=== PATIENT | male | born 1955 | race Caucasian/White ===

== ENCOUNTER → 2016-05-27 | Outpatient (CLI) | payer OTHER ==
[~2016-05-27] MED LIST: CIPR-255 PO; MULT-506 PO
[2016-05-27 17:35] LABS: BASO % 0.5 %; BASO ABS # 0.03 K/uL (0-0.2); COMPLETE YES; EOS % 5.3 %; IG% 0.3 %; LYMPH % 42.4 %; MEAN CELL VOLUME 83.3 fL (80-100); MEAN CORPUSCULAR HEMOGLOBIN 28.8 pg (25-34); MEAN CORPUSCULAR HGB CONC 34.5 g/dl (32-36); MEAN PLATELET VOLUME 10.1 fL (7.4-10.4); MONO % 7.1 %; NEUT % 44.4 %; PLATELET COUNT 256 K/uL (130-400); WHITE BLOOD COUNT 6.37 K/uL (4.8-10.8)
[2016-05-27 17:58] LABS: ALT/SGPT 65 U/L (12-78); BLOOD UREA NITROGEN 17 mg/dl (7-18); CALCIUM 8.6 mg/dl (8.5-10.1); CARBON DIOXIDE 26 mmol/L (21-32); CHLORIDE 104 mmol/L (98-107); CHOLESTEROL 250 mg/dl (0-200); GLUCOSE 140 mg/dl (70-99); POTASSIUM 4.1 mmol/L (3.5-5.1); SODIUM 139 mmol/L (136-145)
[2016-05-27 18:09] LABS: ALKALINE PHOSPHATASE 72 U/L (45-117); AST/SGOT 39 U/L (15-37); CHOLESTEROL/HDL RATIO 3.2; HDL CHOLESTEROL 79 mg/dl; LDL CHOLESTEROL CALCULATED 153 mg/dl; TRIGLYCERIDES 90 mg/dl (0-150); VERY LOW DENSITY LIPOPROT CALC 18 mg/dl
[2016-05-27 18:50] LABS: LYME DISEASE AB IGM NEG (NEG)
[2016-05-27 18:51] LABS: LYME DISEASE AB IGG POS (NEG)
[2016-05-28 06:08] LABS: ESTIMATED AVERAGE GLUCOSE 214 mg/dl; HA1C FLAG Normal (Normal)
[2016-06-03 11:10] LABS: 18KDIGG BAND REACTIVE (NONREACTIVE); 23KDIGG BAND NONREACTIVE (NONREACTIVE); 23KDIGM BAND NONREACTIVE (NONREACTIVE); 28KDIGG BAND NONREACTIVE (NONREACTIVE); 30KDIGG BAND NONREACTIVE (NONREACTIVE); 39KDIGG BAND REACTIVE (NONREACTIVE); 39KDIGM BAND NONREACTIVE (NONREACTIVE); 41KDIGG BAND REACTIVE (NONREACTIVE); 41KDIGM BAND NONREACTIVE (NONREACTIVE); 45KDIGG BAND NONREACTIVE (NONREACTIVE); 58KDIGG BAND REACTIVE (NONREACTIVE); 66KDIGG BAND REACTIVE (NONREACTIVE); 93KDIGG BAND REACTIVE (NONREACTIVE)
== END | disposition home or self-care (01) ==
LOC: C.LABPVFM 13:34
PROVIDERS: ATTEND Nurse Practitioner Family
DX: E11.9 Type 2 diabetes mellitus without complications (principal); E78.5 Hyperlipidemia, unspecified; I10 Essential (primary) hypertension; T14.8 Other injury of unspecified body region; W57.XXXA Bitten or stung by nonvenomous insect and other nonvenomous arthropods, initial encounter

== ENCOUNTER → 2016-12-25 | Outpatient (CLI) | payer BC | END | disposition home or self-care (01) | LOC: C.LABPVFM 15:00 | PROVIDERS: ATTEND Nurse Practitioner Family | DX: N39.0 Urinary tract infection, site not specified (principal) ==

== ENCOUNTER → 2017-03-13 | Outpatient (CLI) | payer BC ==
[2017-03-13 13:12] LABS: ESTIMATED AVERAGE GLUCOSE 117 mg/dl; HA1C FLAG Normal (Normal)
[2017-03-13 13:16] LABS: BLOOD UREA NITROGEN 21 mg/dl (7-18); BUN/CREATININE RATIO 25.4 (10-20); CARBON DIOXIDE 25 mmol/L (21-32); CHLORIDE 106 mmol/L (98-107); CREATININE 0.84 mg/dl (0.60-1.40); GLUCOSE 111 mg/dl (70-99); POTASSIUM 4.1 mmol/L (3.5-5.1); SODIUM 137 mmol/L (136-145)
== END | disposition home or self-care (01) ==
LOC: C.LABPVFM 10:03
PROVIDERS: ATTEND Nurse Practitioner Family
DX: E55.9 Vitamin D deficiency, unspecified (principal); E78.5 Hyperlipidemia, unspecified; I10 Essential (primary) hypertension; E11.9 Type 2 diabetes mellitus without complications

== ENCOUNTER 2025-02-23 13:23 | Inpatient (IN) ==
--- NOTE | 2025-02-23 13:44 | Emergency Department Note ---
ED Provider Note History of Present Illness Chief Complaint: Skin Problem Stated Complaint: PROSTITUS CYST ABSESS Time Seen by Provider: 02/23/25 13:43 Source: patient Mode of arrival: ambulatory Limitations: no limitations Patient is a 69-year-old male who presents to the emergency department with complaints of an abscess in his perineum. Patient states that he was seen here approximately 2 weeks ago and had a catheter placed by urology at the bedside and notes that since that visit in the ER he has had some worsening swelling and pain just below his scrotum. Patient notes that it is painful for him to sit, walk or do any bending over because it is enlarged and painful. Patient has a De Souza catheter in placed upon presentation to the emergency department. It is draining with no difficulty. Home Medications Medication Instructions Recorded Confirmed Type lancets 30 gauge (OneTouch Delica #100 ea 05/18/23 02/19/25 Rx Plus Lancet) blood-glucose sensor (Dexcom G7 #3 ea 05/27/23 02/19/25 Rx Sensor device) blood-glucose,channel lip stiffener insoles,cont #1 ea 05/27/23 02/19/25 Rx (Dexcom G7 [place] Encaser) lisinopril 10 1 tab PO QAM #90 tabs 09/28/24 02/23/25 Rx mg-hydrochlorothiazide 12.5 mg tablet blood sugar diagnostic (OneTouch #100 ea 12/13/24 02/19/25 Rx Ultra Test strips) blood-glucose meter (OneTouch #1 ea 12/13/24 02/19/25 Rx Ultra2 Meter) metformin 500 mg tablet 1,000 mg (2 x 500 mg) PO BID #360 12/21/24 02/23/25 Rx tabs nystatin 100,000 unit/gram topical 1 applic topical BID PRN "BXO" 12/21/24 02/23/25 Rx cream #30 grams pen needle, diabetic 31 gauge x #100 ea 12/21/24 02/19/25 Rx 5/16" clobetasol 0.05 % topical cream 1 applic topical BID PRN Other 02/11/25 02/23/25 History ciprofloxacin HCl 500 mg tablet 500 mg PO BID #60 tabs 02/19/25 02/23/25 Rx gabapentin 100 mg tablet 300 mg (3 x 100 mg) PO DAILY #90 02/19/25 02/23/25 Rx tabs oxycodone 5 mg tablet 2.5 mg (1/2 x 5 mg) PO BID PRN 02/19/25 02/23/25 Rx pain #30 tabs insulin glargine 100 unit/mL (3 0 unit subcut QPM 02/23/25 02/23/25 History mL) subcutaneous pen (Lantus Solostar U-100 Insulin) nystatin 100,000 unit/gram topical 0 applic topical BID 02/23/25 02/23/25 History powder Allergies Allergy/AdvReac Type Severity Reaction Status Date / Time atropine Allergy Severe SEE NOTES Verified 02/19/25 11:31 BELOW Past Med/Surg History Problem List (Updated 02/25/25 @ 18:36 by CECILLE Rios) Candidal UTI (urinary tract infection) [place] rash of groin Penile lesion Perineal abscess (Acute) Prostatitis, acute Scrotal pain Tinea cruris (Acute) Acute hyperglycemia (Acute) Acute on chronic urinary retention (Acute) Urinary retention Tinea corporis UTI (urinary tract infection), uncomplicated Statin intolerance Uncontrolled diabetes mellitus with hyperglycemia Elevated liver enzymes BPH loc w urin obs/LUTS Hyperlipidemia not able saul statin BXO (balanitis xerotica obliterans) Meatal stenosis Urethral stricture (Acute) Vitamin D deficiency (Acute) Obesity, Class III, BMI 40-49.9 (morbid obesity) (Acute) Acrochordon (Acute) Varicose vein of leg Depression ADD (attention deficit disorder) Medical History Actinic keratosis Seborrheic keratosis ADD (attention deficit disorder) History of urethral stricture Diabetes mellitus, type 2 Rib fracture healing left anterior seventh rib fracture 06/02/2021 CXR Morbid obesity Cardiac murmur HX OF - YOUNG AGE, no murmur noted at 2019 anesthesia consultation Hypertension Surgical History S/P arthroscopy of shoulder History of repair of rotator cuff left History of colonoscopy History of urologic surgery DVIU -most recent may 2021 History of ankle surgery R&L Family History Mother Family history of diabetes mellitus Ovarian cancer Grandfather (Paternal) Cancer Grandfather (Maternal) Myocardial infarction Denies family history of Prostate cancer Breast cancer Colorectal cancer Social History Smoking Status: Never smoker Second Hand Exposure: No; Do You Dip or Chew Tobacco: No; Hx Alcohol Use: No Hx Substance Use: No Preferred Language: Tamazight Communication Ability: Effective Visual Impairment: No Limitations Hearing Ability: Normal Machine Operations Supervisor Required: No Beliefs That Will Affect Care: None marital status: Legally Current Living Situation: Alone Current Living Situation Comment: lives in a cabin on his property current occupational status: retired 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, 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 [employer] How many Children do You have: 0 Other Information That Helps Us Care for You: No Feels Safe at Home: Yes Safety Concerns: Feels Safe At This Time Childhood Exposure to Second-Hand Smoke: Yes Diet: regular caffeine: Yes during the past year weight has: remained stable Dental Care, Regularly: Yes Physical Activity Frequency: 3-4 Times per Week Seatbelt Use: sometimes Sunscreen Use: Yes (sometimes) Do you think of yourself as: straight/heterosexual Sexual Activity: has been sexually active, but not for at least 12 months Gender Identity: Male Assistive Devices: None Physical Exam Vital Signs Vital Signs - 24 hr 02/23/25 13:37 Temperature 36.9 C Temperature Source Temporal Artery Scan Pulse Rate 88 Respiratory Rate 18 Respiratory Effort / Characteristics Non-Labored Respiratory Depth Normal Blood Pressure 146/77 H Blood Pressure Mean 100 Pulse Oximetry 99 Oxygen Delivery Method Room Air Sepsis Recent Fever Within 48 Hours No Sepsis New/Unexplained Change in Mental Status No Sepsis Action Taken by Nursing No Action Required VITAL SIGNS - Vital signs and nursing notes were reviewed. GENERAL -69-year-old male appearing their stated age, who is in no acute distress. Communicates well with provider and answers questions appropriately. HEAD - Normocephalic, Atraumatic. No Le's Sign or Raccoon's Eyes. No depressed skull fractures palpable. EYES - PERRL with EOMI bilaterally. Sclera anicteric. Conjunctiva pink and moist with no injection noted. LUNGS - Chest wall symmetric without accessory muscle use, intercostals retractions, or central cyanosis. Normal vesicular breath sounds CTA B/L. No wheezes, rales, or rhonchi appreciated. CARDIAC - RRR with S1/S2. No murmur, rubs, or gallops appreciated. ABDOMEN- Soft and nontender, bowel sounds present in all 4 quadrants. No palpable masses or ascites. -patient has an indwelling De Souza catheter in place. The catheter appears to be draining with no difficulty. Patient does have a large swollen and cystic appearing mass to his scrotum on the left side. Patient notes significant discomfort, worsening with palpation. Patient denies any testicular pain. The area of swelling on his scrotum does have a pustule on the top of his presenting like a an abscess. EXTREMITIES - No edema present. +5/5 strength noted in UE/LE bilaterally. Course Administered Medications Acetaminophen (Acetaminophen 325 Mg Tab) 650 mg PO Q4H PRN PRN Reason: pain/fever Stop: 03/25/25 20:58 Last Admin: 02/24/25 21:44 Dose: 650 mg Documented By: justin Admin: 02/24/25 09:36 Dose: 650 mg Documented By: BHAVANA Enoxaparin Sodium (Enoxaparin Inj 40 Mg/0.4 Ml Syr) 40 mg SQ QAM [facility] Stop: 03/27/25 08:59 Last Admin: 02/25/25 09:04 Dose: 40 mg Documented By: BHAVANA Gabapentin (Gabapentin 300 Mg Cap) 300 mg PO HS [facility] Stop: 03/25/25 20:59 Last Admin: 02/24/25 21:44 Dose: 300 mg Documented By: justin Admin: 02/23/25 22:07 Dose: 300 mg Documented By: KURTIS Fluconazole (Diflucan) 200 mg in 100 mls @ 100 mls/hr IV Q24H [facility] Stop: 03/03/25 17:29 Last Infusion: 02/25/25 19:18 Dose: Infused Documented By: justin Admin: 02/25/25 18:02 Dose: 100 mls/hr Documented By: Infusion: 02/24/25 18:30 Dose: Infused Documented By: Admin: 02/24/25 17:25 Dose: 100 mls/hr Documented By: BHAVANA Daptomycin 500 mg/ Syringe 10 mls @ 5 mls/min IV Q24H [facility]; Protocol Stop: 03/03/25 17:29 Last Admin: 02/25/25 18:09 Dose: 5 mls/min Documented By: Admin: 02/24/25 17:25 Dose: 5 mls/min Documented By: BHAVANA Piperacillin Sod/Tazobactam Sod (Zosyn) 4.5 gm in 100 mls @ 25 mls/hr IV Q8H [facility]; Protocol Stop: 03/02/25 21:59 Last Infusion: 02/25/25 18:37 Dose: Infused Documented By: Admin: 02/25/25 14:30 Dose: 25 mls/hr Documented By: Infusion: 02/25/25 09:36 Dose: Infused Documented By: Infusion: 02/25/25 06:05 Dose: 25 mls/hr Documented By: justin Infusion: 02/25/25 05:54 Dose: 0 mls/hr Documented By: justin Admin: 02/25/25 05:44 Dose: 25 mls/hr Documented By: justin Infusion: 02/25/25 03:21 Dose: Infused Documented By: justin Admin: 02/24/25 22:35 Dose: 25 mls/hr Documented By: justin Infusion: 02/24/25 19:31 Dose: Infused Documented By: justin Admin: 02/24/25 14:21 Dose: 25 mls/hr Documented By: Infusion: 02/24/25 13:37 Dose: Infused Documented By: Admin: 02/24/25 06:07 Dose: 25 mls/hr Documented By: Infusion: 02/24/25 02:10 Dose: Infused Documented By: Admin: 02/23/25 22:06 Dose: 25 mls/hr Documented By: KURTIS Insulin Aspart (Insulin Aspart Per Unit Charge) 0 units SC ACHS [facility] Stop: 03/26/25 13:44 Last Admin: 02/25/25 18:09 Dose: 8 units Documented By: BHAVANA Co-signed By: dannie Admin: 02/25/25 12:45 Dose: 4 units Documented By: BHAVANA Co-signed By: DANI Admin: 02/25/25 09:51 Dose: 6 units Documented By: BHAVANA Co-signed By: dannie Admin: 02/24/25 21:45 Dose: 4 units Documented By: justin Co-signed By: DWIGHT Admin: 02/24/25 17:24 Dose: 10 units Documented By: BHAVANA Co-signed By: SARBJIT Admin: 02/24/25 14:27 Dose: 2 units Documented By: BHAVANA Co-signed By: dannie Insulin Glargine (Lantus Per Unit Charge) 15 units SQ QPM [facility] Stop: 03/25/25 20:59 Last Admin: 02/24/25 21:44 Dose: 15 units Documented By: justin Co-signed By: DWIGHT Admin: 02/23/25 22:03 Dose: 15 units Documented By: KURTIS Co-signed By: DWIGHT Morphine Sulfate (Morphine Sulfate 2 Mg/Ml Carp) 2 mg IV Q3H PRN PRN Reason: Pain Stop: 03/09/25 20:58 Last Admin: 02/25/25 09:07 Dose: 2 mg Documented By: Admin: 02/25/25 05:47 Dose: 2 mg Documented By: justin Admin: 02/25/25 01:00 Dose: 2 mg Documented By: Admin: 02/24/25 19:55 Dose: 2 mg Documented By: justin Admin: 02/24/25 14:30 Dose: 2 mg Documented By: Admin: 02/24/25 08:46 Dose: 2 mg Documented By: Admin: 02/24/25 02:03 Dose: 2 mg Documented By: KURTIS Oxycodone HCl (Oxycodone Hcl Ir 5 Mg Tab (Immediate Release)) 5 mg PO Q4H PRN PRN Reason: Moderate Pain (Scale 4, 5, 6) Stop: 03/11/25 09:38 Last Admin: 02/25/25 15:39 Dose: 5 mg Documented By: BHAVANA Discontinued Medications Bacitracin (Bacitracin Oint 14 Gm Tube) Confirm Administered Dose 45 appln .ROUTE .STK-MED ONE Stop: 02/24/25 07:40 Last Admin: 02/24/25 11:35 Dose: Not Given Documented By: [facility] Bupivacaine HCl (Bupivacaine 0.5 % 5 Mg/1 Ml Mpf 30ml Vial) Confirm Administered Dose 30 ml .ROUTE .STK-MED ONE Stop: 02/24/25 07:40 Last Admin: 02/24/25 11:35 Dose: 10 ml Documented By: [id number] Piperacillin Sod/Tazobactam Sod (Zosyn) 4.5 gm in 100 mls @ 200 mls/hr IV NOW ONE; Protocol Stop: 02/23/25 17:32 Last Infusion: 02/23/25 17:45 Dose: Infused Documented By: Admin: 02/23/25 17:21 Dose: 200 mls/hr Documented By: PANDA Daptomycin 600 mg/ Syringe 12 mls @ 8.25 mls/min IV NOW ONE; Protocol Stop: 02/23/25 17:44 Last Admin: 02/23/25 18:33 Dose: 8.25 mls/min Documented By: jojo Fluconazole (Diflucan) 200 mg in 100 mls @ 100 mls/hr IV ONE ONE Stop: 02/23/25 18:32 Last Infusion: 02/23/25 19:38 Dose: Infused Documented By: Admin: 02/23/25 18:33 Dose: 100 mls/hr Documented By: jojo Magnesium Sulfate/Dextrose (Magnesium Sulfate / D5w) 1 gm in 100 mls @ 100 mls/hr IV Q1H [facility] Stop: 02/23/25 21:25 Last Infusion: 02/24/25 00:30 Dose: Infused Documented By: Admin: 02/23/25 23:19 Dose: 100 mls/hr Documented By: Infusion: 02/23/25 23:06 Dose: Infused Documented By: Admin: 02/23/25 22:06 Dose: 100 mls/hr Documented By: KURTIS Sodium Chloride (Nss) 1,000 mls @ 100 mls/hr IV .Q10H [facility] Stop: 02/24/25 06:58 Last Infusion: 02/24/25 08:25 Dose: Infused Documented By: Admin: 02/23/25 22:05 Dose: 100 mls/hr Documented By: KURTIS Insulin Aspart (Insulin Aspart Per Unit Charge) 0 units SC Q6 [facility] Stop: 03/25/25 20:59 Last Admin: 02/24/25 18:51 Dose: Not Given Documented By: justin Admin: 02/24/25 05:46 Dose: Not Given Documented By: Admin: 02/24/25 01:20 Dose: Not Given Documented By: Admin: 02/23/25 22:03 Dose: 2 units Documented By: KURTIS Co-signed By: DWIGHT Ioversol (Optiray 320 100ml) 93 ml IV ONCE ONE Stop: 02/23/25 16:08 Last Admin: 02/23/25 16:07 Dose: 93 ml Documented By: KATIE Lidocaine HCl (Lidocaine 1% Local 20 Ml Vial) 5 ml INFIL NOW ONE Stop: 02/23/25 13:54 Last Admin: 02/23/25 17:21 Dose: Not Given Documented By: PANDA Morphine Sulfate (Morphine Sulfate 4 Mg/Ml 1 Ml Carp\\Vial) 4 mg IV NOW STA Stop: 02/23/25 17:27 Last Admin: 02/23/25 17:44 Dose: 4 mg Documented By: PANDA Morphine Sulfate (Morphine Sulfate 2 Mg/Ml Carp) Confirm Administered Dose 2 mg .ROUTE .STK-MED ONE Stop: 02/23/25 21:13 Last Admin: 02/23/25 21:14 Dose: 2 mg Documented By: DWIGHT Ondansetron HCl (Ondansetron Inj 2 Mg/Ml 2 Ml Vial) 4 mg IV NOW STA Stop: 02/23/25 17:27 Last Admin: 02/23/25 17:44 Dose: 4 mg Documented By: PANDA Medical Decision Making Differential Diagnosis Abscess, cyst, cellulitis, among others Medical Records Attestation: I reviewed the patient's medical records. Home Medications was personally reviewed by me Laboratory Data Attestation: I reviewed the patient's lab results. 02/24/25 06:47 02/25/25 06:03 Lab Results 02/23/25 Range/Units 14:20 WBC 12.55 H (4.8-10.8) K/ul RBC 4.04 L (4.70-6.10) M/uL Hgb 11.8 L (14.0-18.0) g/dL Hct 33.8 L (42.0-52.0) % MCV 83.7 (80.0-100.0) fL MCH 29.2 (25.0-34.0) pg MCHC 34.9 (32.0-36.0) g/dL RDW Std Deviation 37.9 (36.4-46.3) fL RDW Coeff of Jodi 12.4 (11.5-14.5) % Plt Count 373 (130-400) K/uL MPV 9.3 L (9.4-12.4) fL Immature Gran % (Auto) 0.5 % Neut % (Auto) 70.5 % Lymph % (Auto) 18.8 % Chase % (Auto) 5.9 % Eos % (Auto) 3.8 % Baso % (Auto) 0.5 % Neut # (Auto) 8.85 H (1.40-6.50) K/uL Lymph # (Auto) 2.36 (1.20-3.40) K/uL Chase # (Auto) 0.74 H (0.11-0.59) K/uL Eos # (Auto) 0.48 (0.00-0.50) K/uL Baso # (Auto) 0.06 (0.00-0.20) K/uL Immature Gran # (Auto) 0.06 (0.01-0.20) K/uL Sodium 135 L (136-145) mmol/L Potassium 4.3 (3.5-5.1) mmol/L Chloride 101 (98-107) mmol/L Carbon Dioxide 25 (21-32) mmol/L Anion Gap 9 (3-11) BUN 24 H (6-23) mg/dl Creatinine 0.86 (0.6-1.4) mg/dl Est Cr Clr Drug Dosing Not Reportable eGFR 93.73 BUN/Creatinine Ratio 27.9 H (10-20) Glucose 155 H (70-99(Fasting)) mg/dl Estimat Average Glucose 214 mg/dl Hemoglobin A1c 9.1 H (4.5-5.6) % Lactate 1.8 (0.4-2.0) mmol/L Calcium 9.3 (8.6-10.3) mg/dl Magnesium 1.6 L (1.7-2.4) mg/dl Total Bilirubin 0.4 (0.2-1.0) mg/dl AST 20 (13-39) U/L ALT 19 (7-52) U/L Alkaline Phosphatase 119 H (34-104) U/L Total Protein 7.8 (6.0-8.3) gm/dl Albumin 3.7 (3.4-5.0) gm/dl Globulin 4.1 H (2.5-4.0) gm/dl Albumin/Globulin Ratio 0.9 (0.9-2) MDM Narrative Patient is a 69-year-old male who presents to the emergency department with complaints of an abscess in his perineum. Patient states that he was seen here approximately 2 weeks ago and had a catheter placed by urology at the bedside and notes that since that visit in the ER he has had some worsening swelling and pain just below his scrotum. Patient notes that it is painful for him to sit, walk or do any bending over because it is enlarged and painful. Patient has a De Souza catheter in placed upon presentation to the emergency department. It is draining with no difficulty. Patient was evaluated by myself and findings were noted in the physical exam above. Patient was ordered IV placement, lab work and initially ordered a deep tissue culture and lidocaine for incision and drainage. After the patient was evaluated by myself I felt that doing imaging on the patient's abscess was appropriate prior to incision and drainage due to the location and the appearance of the abscess. The patient was ordered an ultrasound of that soft tissue. Patient's lab work resulted with an elevated white blood cell count of 12.55. Patient was mildly anemic with a hemoglobin of 11.8 and hematocrit of 33.8. Patient had no significant electrolyte imbalance noted. Patient's ultrasound of the soft tissue around his scrotum showed an indeterminate mass measuring up to [address] imaging with contrast to further evaluate the area. Patient was ordered a CT of the pelvis with IV contrast at this time. Patient was also ordered a dose of Zosyn and morphine and Zofran as needed for discomfort. Patient had his CT that was completed and interpreted by radiology to show a 6.1 cm soft tissue abscess at the junction of the scrotal sac and the perineum. There is also an adjacent 9.9 x 4.2 cm fluid collection in the posterior scrotal sac that may also be an abscess as well. There is some diffuse wall thickening of the bladder which may be due to infectious cystitis as well. I reached out and spoke with Dr. Simpson who was on-call for urology today. He gave him a full report of the patient's chief complaint, current status and the results of his imaging and lab work. He agreed that it would be reasonable to have the patient be admitted to the hospital and take him to the OR tomorrow for drainage of this abscess due to the complexity of it. I spoke with the patient and the patient was agreeable to this plan. The patient reports that he ate just prior to coming to the emergency department and they would be able to take him to the OR to much later tonight and due to the patient's unstable presentation he was agreeable to the plan to wait and be admitted to the hospital for IV antibiotics and pain control. I reached out and spoke with the [facility] hospitalist group regarding this patient. I keep a full report on the patient's chief complaint, current status and the results of his imaging and lab work. I also discussed with them that I spoke with Dr. Simpson regarding this patient. They were agreeable to admit the patient to the hospital under their service. Please refer to the [facility] hospitalist group's and urology's documentation of this patient for further evaluation and management. Attending Attestation: I Basilio Dave MD I have reviewed the advanced practitioner's documentation and agree with the plan of care. Significant collection on imaging. Discussion was had with urology and will start on broad-spectrum antibiotics until plan for OR with urology. Admitted to medicine. I accept the responsibility for the associated risk of managing the patient. I performed a substantive portion of the visit including involvement in all aspects of medical decision making. Impression Perineal abscess Discharge Plan Visit Data Chief Complaint: Skin Problem Stated Complaint: PROSTITUS CYST ABSESS ED Provider: Basilio Dave ED Midlevel Provider: Nikki Engel Discharge Problem: Perineal abscess Patient Disposition: Admitted As Inpatient Condition: Fair Discharge Instructions Interventions: ED Discharge Assessment Last Done: 02/23/25 19:41 ED DC CONDITION Conditon at Discharge Condition at Discharge: Fair
[2025-02-23 14:52] LABS: Hematocrit (blood only) 33.8 % (42.0-52.0); Hemoglobin 11.8 g/dL (14.0-18.0); Immature Granulocytes # (auto) 0.06 K/uL (0.01-0.20); Immature Granulocytes % (auto) 0.5 %; Mean Corpuscular Hemoglobin 29.2 pg (25.0-34.0); Mean Corpuscular Volume 83.7 fL (80.0-100.0); Platelet Count 373 K/uL (130-400); RDW Standard Deviation 37.9 fL (36.4-46.3); Red Blood Count 4.04 M/uL (4.70-6.10); White Blood Count 12.55 K/ul (4.8-10.8)
[2025-02-23 15:07] LABS: Alanine Aminotransferase 19 U/L (7-52); Albumin Globulin Ratio 0.9 (0.9-2); Albumin Level 3.7 gm/dl (3.4-5.0); Alkaline Phosphatase 119 U/L (34-104); Anion Gap 9 (3-11); Bilirubin,Total 0.4 mg/dl (0.2-1.0); Blood Urea Nitrogen 24 mg/dl (6-23); Calcium 9.3 mg/dl (8.6-10.3); Carbon Dioxide 25 mmol/L (21-32); Chloride 101 mmol/L (98-107); Globulin 4.1 gm/dl (2.5-4.0); Glucose 155 mg/dl (70-99(Fasting)); Potassium 4.3 mmol/L (3.5-5.1); Sodium 135 mmol/L (136-145); Total Protein 7.8 gm/dl (6.0-8.3)
--- NOTE | 2025-02-23 15:34 | Ultrasound Report ---
US soft tissue perineum HISTORY: 69 years-old Male large abscess/cyst . Patient presents with palpable abnormality of the pe rineum. COMPARISON: Scrotal ultrasound 07/16/2014 TECHNIQUE: Multiple real-time sonographic images of the perineal tissues were obtained assessing torres scale appearance and color flow FINDINGS: Indeterminate mixed echogenicity structure within the perineum demonstrates central color flow measur ing 6 x 2 x 4 cm. Additionally, there is scrotal wall subcutaneous edema. IMPRESSION: Indeterminate fracture/possible mass in the perineum measures up to 6 cm. Correlation wit h dedicated CT of the pelvis with IV contrast recommended. ACT 112: Negative or not required by law. The above report was generated using voice recognition software. It may contain grammatical, syntax o r spelling errors. Electronically signed by: Albert Lizarraga M.D. 02/23/2025 3:33 PM
[2025-02-23] MEDS: OPTIRAY 320 100ml IV ONE (16:07)
--- NOTE | 2025-02-23 17:00 | CT Scan Report ---
Clinical history: Possible mass Technique: Axial computed tomography images were obtained of the pelvis after the administration of intravenous contrast Findings: There is a 6.1 x 4.2 cm ring-enhancing fluid collection at the junction of the perineum and scrotum, consistent with an abscess. This is contiguous with a 9.9 x 4.2 cm fluid collection in the posterior scrotal sac No fracture is identified. There is a sclerotic lesion in the right ilium adjacent to the right sacroiliac joint. There is mild bilateral hip osteoarthritis. The sacroiliac joints appear unremarkable. There is no sign of osteomyelitis The visualized musculature appears unremarkable. There is a small umbilical hernia containing fat The iliac arteries are of normal caliber. No adenopathy is noted. The visualized bowel appears unremarkable. No free intraperitoneal fluid or air is seen. There is apparent diffuse bladder wall thickening. The bladder is decompressed, containing a De Souza catheter Impression: 1. 6.1 cm soft tissue abscess at the junction of the scrotal sac and perineum, with an adjacent 9.9 x 4.2 cm fluid collection in the posterior scrotal sac that may represent an abscess as well 2. Apparent diffuse bladder wall thickening. Possible etiologies include infectious cystitis and neurogenic bladder 3. Small umbilical hernia containing only fat 4. Sclerotic lesion in the right ilium, indeterminate in nature but likely a benign bone island ACT 112: Positive. There are findings on this exam that require communication between the performing entity and the patient following Patient Test Result Information Act ([place] ACT 112) guidelines. Electronically signed by Andres Mitchell 02-23-2025 4:59 PM
[2025-02-23] MEDS: LIDOCAINE 1% LOCAL 20 ML VIAL INFIL ONE (17:21)
[2025-02-23] MEDS: PIPERACILLIN/TAZOBACTAM 4.5 GM/100 ML BAG IV ONE (17:21)
--- NOTE | 2025-02-23 17:30 | History & Physical Report ---
Date of Service February 23, 2025 Assessment & Plan (1) Perineal abscess: (2) Uncontrolled diabetes mellitus with hyperglycemia: (3) Hyperlipidemia: (4) Penile lesion: (5) Bhavna rash of groin: (6) Morbid obesity: (7) Hypertension: (8) BPH loc w urin obs/LUTS: (9) History of urethral stricture: (10) Candidal UTI (urinary tract infection): Plan 69yo male with T2DM, HTN, diabetic neuropathy, obesity, ADD, balanitis xerotica obliterans, BPH, hypospadias, lichen sclerosis of the foreskin, recent urethral dilatation for urethral stricture (02/11/25), and recent delacruz catheter placement by urology (Dr Vines - 02/11/25). Presents with 2 weeks of worsening perineal pain and swelling. #perineal abscess - -as seen on CT pelvis today and on physical exam -due to recent bhavna seen on urine cx as well as candidal-appearing rash in groin will continue candidal coverage with diflucan 200mg IV daily -for typical bacterial pathogens and given the severity of this infection will continue zosyn/daptomycin - both of which were started in ER -urology consulted, they plan OR I/D tomorrow -morphine prn pain -NPO after MN tonight -IV fluids -blood cultures have been collected & are pending #candidal UTI - -c albicans grew on 02/11/25 urine culture -he received a single dose of diflucan on 02/11/25 but none since -will cont diflucan 200mg IV daily -if he has typical bacterial UTI and/or prostatitis he will be on zosyn/dapto (being used for perineal abscess) #urethral stricture s/p dilatation and LUTS - s/p delacruz placement 02/11 - -continue delacruz -defer management to urology #uncontrolled T2DM - -since he will be NPO starting at MN will give a lower dose of lantus tonight - 15 units; but plan to titrate this post-op -novolog SSI for meals/correction -Hba1c 9.1% today -BSGs ac/hs -hold metformin #hypomagnesemia - -IV mag sulfate x 2 grams -repeat mag level am -2nd to chronic HCTZ use #HTN - -hold lisinopril-HCTZ; resume as needed #diabetic neuropathy of hands/feet - -cont gabapentin #BPH - -consider flomax or similar #hyperlipidemia - -he is not on therapy for such #penile lesion on hooks of penis - -consider bx when under anesthesia for the abscess? defer to urology #candidal groin rash - -diflucan should be more than adequate #housing insecurity - -will need social work assistance with this given he does not have a shower/bath-tub #DVT Proph - -following surgery will start some form of chemical DVT proph if permissible with urology History of Present Illness Chief Complaint: worsening pain perineal region Primary Care Provider: CECILLE Monroe 69yo male with T2DM, HTN, diabetic neuropathy, obesity, ADD, balanitis xerotica obliterans, BPH, hypospadias, lichen sclerosis of the foreskin, recent urethral dilatation for urethral stricture, and recent delacruz catheter placement. Presents with 2 weeks of worsening perineal pain and swelling. On 02/06 he saw his PCP for a routine wellness visit and at that time was c/o dysuria as well as rash in his groin. On 02/11 he came to the [facility] ER with 2 days of difficulty voiding as well as worsening rash in the groin. Attempts to place a delacruz were unsuccessful and urology was consulted for assistance with such. [place] Spencer [place] [facility] [place] [place] Rinaldi and performed urethral dilatation and delacruz placement. He was given a dose of diflucan for the rash in his groin, urine culture was sent, and he was placed on a 10-day course of bactrim. Urine culture ultimately grew bhavna albicans. During that ER visit he was having some mild perineal pain but by report there was nothing on physical exam to account for that pain. On 02/19 he had a f/u visit with his PCP's office and his bactrim was changed to cipro for concerns of prostatitis. His perineal pain had been worsening to the point of needing narcotic pain medicine to stay comfortable. Plans were for urgent urology referral. Within a couple of days of this last primary care visit the perineal region started to become very swollen and even more tender. It got to the point where he could not sit in a chair due to the severity of the pain. No drainage. Denies any fevers or chills. Delacruz has remained in place since the 02/11 ER visit. He finally came to the ER today due to the severity of the pain. Patient reports he is going through a divorce and has been staying in a cabin on the property where his main home is. This cabin has heat & electricity but he does not have a shower/bath-tub. He has been making plans to shower at a neighbor's home. Allergies Allergy/AdvReac Type Severity Reaction Status Date / Time atropine Allergy Severe SEE NOTES Verified 02/19/25 11:31 BELOW Home Medications Medication Instructions Recorded Confirmed Type lancets 30 gauge (OneTouch Delica #100 ea 05/18/23 02/19/25 Rx Plus Lancet) blood-glucose sensor (Dexcom G7 #3 ea 05/27/23 02/19/25 Rx Sensor device) blood-glucose,credit risk officer,cont #1 ea 05/27/23 02/19/25 Rx (Dexcom G7 Ophthalmic Photographer) lisinopril 10 1 tab PO QAM #90 tabs 09/28/24 02/23/25 Rx mg-hydrochlorothiazide 12.5 mg tablet blood sugar diagnostic (OneTouch #100 ea 12/13/24 02/19/25 Rx Ultra Test strips) blood-glucose meter (OneTouch #1 ea 12/13/24 02/19/25 Rx Ultra2 Meter) metformin 500 mg tablet 1,000 mg (2 x 500 mg) PO BID #360 12/21/24 02/23/25 Rx tabs nystatin 100,000 unit/gram topical 1 applic topical BID PRN "BXO" 12/21/24 02/23/25 Rx cream #30 grams pen needle, diabetic 31 gauge x #100 ea 12/21/24 02/19/25 Rx 5/16" clobetasol 0.05 % topical cream 1 applic topical BID PRN Other 02/11/25 02/23/25 History ciprofloxacin HCl 500 mg tablet 500 mg PO BID #60 tabs 02/19/25 02/23/25 Rx gabapentin 100 mg tablet 300 mg (3 x 100 mg) PO DAILY #90 02/19/25 02/23/25 Rx tabs oxycodone 5 mg tablet 2.5 mg (1/2 x 5 mg) PO BID PRN 02/19/25 02/23/25 Rx pain #30 tabs insulin glargine 100 unit/mL (3 0 unit subcut QPM 02/23/25 02/23/25 History mL) subcutaneous pen (Lantus Solostar U-100 Insulin) nystatin 100,000 unit/gram topical 0 applic topical BID 02/23/25 02/23/25 History powder Past Med/Surg History Problem List (Updated 02/24/25 @ 05:53 by Aldair Watt MD) Candidal UTI (urinary tract infection) Bhavna rash of groin Penile lesion Perineal abscess Prostatitis, acute Scrotal pain Tinea cruris (Acute) Acute hyperglycemia (Acute) Acute on chronic urinary retention (Acute) Urinary retention Tinea corporis UTI (urinary tract infection), uncomplicated Statin intolerance Uncontrolled diabetes mellitus with hyperglycemia Elevated liver enzymes BPH loc w urin obs/LUTS Hyperlipidemia not able saul statin BXO (balanitis xerotica obliterans) Meatal stenosis Urethral stricture (Acute) Vitamin D deficiency (Acute) Obesity, Class III, BMI 40-49.9 (morbid obesity) (Acute) Acrochordon (Acute) Varicose vein of leg Depression ADD (attention deficit disorder) Medical History Actinic keratosis Seborrheic keratosis ADD (attention deficit disorder) History of urethral stricture Diabetes mellitus, type 2 Rib fracture healing left anterior seventh rib fracture 06/02/2021 CXR Morbid obesity Cardiac murmur HX OF - YOUNG AGE, no murmur noted at 2019 anesthesia consultation Hypertension Surgical History S/P arthroscopy of shoulder History of repair of rotator cuff left History of colonoscopy History of urologic surgery DVIU -most recent may 2021 History of ankle surgery R&L Family History Mother Family history of diabetes mellitus Ovarian cancer Grandfather (Paternal) Cancer Grandfather (Maternal) Myocardial infarction Denies family history of Prostate cancer Breast cancer Colorectal cancer Social History (Updated 02/24/25 @ 05:43 by Aldair Watt MD) Smoking Status: Never smoker Second Hand Exposure: No; Do You Dip or Chew Tobacco: No; Hx Alcohol Use: No Hx Substance Use: No Preferred Language: Malian Communication Ability: Effective Visual Impairment: No Limitations Hearing Ability: Normal Cut Off Tender Glass Required: No Beliefs That Will Affect Care: None marital status: Legally Current Living Situation: Alone Current Living Situation Comment: lives in a cabin on his property current occupational status: retired 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, 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 [employer] How many Children do You have: 0 Feels Safe at Home: Yes Childhood Exposure to Second-Hand Smoke: Yes Diet: regular caffeine: Yes during the past year weight has: remained stable Dental Care, Regularly: Yes Physical Activity Frequency: 3-4 Times per Week Seatbelt Use: sometimes Sunscreen Use: Yes (sometimes) Do you think of yourself as: straight/heterosexual Sexual Activity: has been sexually active, but not for at least 12 months Gender Identity: Male Assistive Devices: Glasses Review of Systems Review of Systems: gen - no fevers or chills eyes - no visual or ocular complaints HENT - no URI symptoms CV - no chest pain pulm - no dyspnea or MANTILLA, no cough GI - no nausea, vomiting or blood in stool; no abd pain - severe perineal pain/swelling; chronic rash in groin; recent LUTS s/p delacruz placement; some suprapubic pain musculo - denies myalgias neuro - no headache; no motor weakness skin - chronic rash in groin; lesions on shaft of penis endo - does not check sugars -- having issues with glucometer Physical Exam Physical Exam: gen - lying in bed, NAD, nontoxic appearing, obese eyes - PERRL HENT - MMM, no thrush or lesions neck - no JVD, no lymph nodes, no obvious goiter heart - RRR, s1 s2, no murmur lungs - CTA b/l abd - soft NT ND BS+; umbilical hernia - reducible; no HSM; no suprapubic pain - delacruz in place, no gross hematuria; scrotum with testicles descended, cremasteric reflexes intact; to the left of midline in the perineal region is a large abscess with tense skin, erythema, and warmth; scaly white in appearance skin lesion near the hooks of penis on right skin - candidal type rash in groin b/l; perineal findings as above ext - varicose veins, stasis changes b/l shins, pulses b/l feet 2+, no edema neuro - moves all 4 limbs equally psych - a/o x 3 Results & Data Results & Data Vital Signs (Past 12 Hours) Vital Signs Temp Pulse Pulse Resp BP BP Pulse Ox 02/23/25 17:21 69 20 145/87 H 98 02/23/25 13:37 36.9 C 88 18 146/77 H 99 O2 Del Method 02/23/25 17:21 Room Air 02/23/25 13:37 Room Air Laboratory Results Laboratory Results - last 24 hr 02/23/25 14:20 WBC 12.55 H RBC 4.04 L Hgb 11.8 L Hct 33.8 L MCV 83.7 MCH 29.2 MCHC 34.9 RDW Std Deviation 37.9 RDW Coeff of Jodi 12.4 Plt Count 373 MPV 9.3 L Immature Gran % (Auto) 0.5 Neut % (Auto) 70.5 Lymph % (Auto) 18.8 [place] % (Auto) 5.9 Eos % (Auto) 3.8 Baso % (Auto) 0.5 Neut # (Auto) 8.85 H Lymph # (Auto) 2.36 [place] # (Auto) 0.74 H Eos # (Auto) 0.48 Baso # (Auto) 0.06 Immature Gran # (Auto) 0.06 Sodium 135 L Potassium 4.3 Chloride 101 Carbon Dioxide 25 Anion Gap 9 BUN 24 H Creatinine 0.86 Est Cr Clr Drug Dosing Not Reportable eGFR 93.73 BUN/Creatinine Ratio 27.9 H Glucose 155 H Estimat Average Glucose Pending Hemoglobin A1c Pending Lactate 1.8 Calcium 9.3 Magnesium 1.6 L Total Bilirubin 0.4 AST 20 ALT 19 Alkaline Phosphatase 119 H Total Protein 7.8 Albumin 3.7 Globulin 4.1 H Albumin/Globulin Ratio 0.9 Diagnostic Findings Soft Tissue Ultrasound 02/23/25 14:18 US soft tissue perineum HISTORY: 69 years-old Male large abscess/cyst . Patient presents with palpable abnormality of the perineum. COMPARISON: Scrotal ultrasound 07/16/2014 TECHNIQUE: Multiple real-time sonographic images of the perineal tissues were obtained assessing grayscale appearance and color flow FINDINGS: Indeterminate mixed echogenicity structure within the perineum demonstrates central color flow measuring 6 x 2 x 4 cm. Additionally, there is scrotal wall subcutaneous edema. IMPRESSION: Indeterminate fracture/possible mass in the perineum measures up to 6 cm[address] Correlation with dedicated CT of the pelvis with IV contrast recommended. ACT 112: Negative or not required by law. The above report was generated using voice recognition software. It may contain grammatical, syntax or spelling errors. Electronically signed by: Albert Lizarraga M.D. 02/23/2025 3:[address] 02/23/25 15:39 Clinical history: Possible mass Technique: Axial computed tomography images were obtained of the pelvis after the administration of intravenous contrast Findings: There is a 6.1 x 4.2 cm ring-enhancing fluid collection at the junction of the perineum and scrotum, consistent with an abscess. This is contiguous with a 9.9 x 4.2 cm fluid collection in the posterior scrotal sac No fracture is identified. There is a sclerotic lesion in the right ilium adjacent to the right sacroiliac joint. There is mild bilateral hip osteoarthritis. The sacroiliac joints appear unremarkable. There is no sign of osteomyelitis The visualized musculature appears unremarkable. There is a small umbilical hernia containing fat The iliac arteries are of normal caliber. No adenopathy is noted. The visualized bowel appears unremarkable. No free intraperitoneal fluid or air is seen. There is apparent diffuse bladder wall thickening. The bladder is decompressed, containing a Delacruz catheter Impression: 1. 6.1 cm soft tissue abscess at the junction of the scrotal sac and perineum, with an adjacent 9.9 x 4.2 cm fluid collection in the posterior scrotal sac that may represent an abscess as well 2. Apparent diffuse bladder wall thickening. Possible etiologies include infectious cystitis and neurogenic bladder 3. Small umbilical hernia containing only fat 4. Sclerotic lesion in the right ilium, indeterminate in nature but likely a benign bone island ACT 112: Positive. There are findings on this exam that require communication between the performing entity and the patient following Patient Test Result Information Act ([place] ACT 112) guidelines. Electronically signed by Andres Mitchell 02-23-2025 4:59 PM Code Status & VTE Plan Code Status full code PG Care Time/CCT Total # of Minutes Spent Total Time Spent with Patient: Total time spent is greater than 50% in coordination of care (as documented) at patient's floor/unit and/or counseling patient: Coding Level of Care Code 65696 INT INP/OBS CARE MIN Diagnoses Perineal abscess L02.215 Uncontrolled type 2 diabetes mellitus with hyperglycemia E11.65 Diabetes mellitus type: type 2 Mixed hyperlipidemia E78.2 Hyperlipidemia type: mixed hyperlipidemia Penile lesion N48.9 Bhavna rash of groin B37.89 Morbid obesity E66.01 Primary hypertension I10 Hypertension type: primary hypertension BPH loc w urin obs/LUTS N40.1 History of urethral stricture Z87.448 Candidal UTI (urinary tract infection) B37.49 (2) Uncontrolled diabetes mellitus with hyperglycemia Diabetes mellitus type: type 2 Qualified Code(s): E11.65 - Type 2 diabetes mellitus with hyperglycemia (3) Hyperlipidemia Hyperlipidemia type: mixed hyperlipidemia Qualified Code(s): E78.2 - Mixed hyperlipidemia (7) Hypertension Hypertension type: primary hypertension Qualified Code(s): I10 - Essential (primary) hypertension
[2025-02-23] MEDS: MoRPHine SULFATE 4 MG/ML 1 ML CARP\\VIAL IV STA (17:44)
[2025-02-23] MEDS: ONDANSETRON INJ 2 MG/ML 2 ML VIAL IV STA (17:44)
[2025-02-23] MEDS: FLUCONAZOLE 200 MG/100 ML BAG IV ONE (18:33)
[2025-02-23] MEDS: DAPTOmycin 600 MG in SYRINGE 0 ML IV ONE (18:33)
[2025-02-23 18:54] LABS: Magnesium 1.6 mg/dl (1.7-2.4)
[2025-02-23] MEDS ORDERED: ONDANSETRON INJ 2 MG/ML 2 ML VIAL IV PRN (20:59)
[2025-02-23] MEDS: MoRPHine SULFATE 2 MG/ML CARP ONE (21:14)
[2025-02-23] MEDS ORDERED: GLUCOSE 10 TAB/TUBE PO PRN (21:15)
[2025-02-23] MEDS ORDERED: DEXTROSE 50% 50 ML SYRINGE IV PRN (21:15)
[2025-02-23] MEDS ORDERED: GLUCOSE 40% GEL 15 GM TUBE PO PRN (21:15)
[2025-02-23] MEDS ORDERED: GLUCAGON FOR INJ 1 MG VIAL SQ PRN (21:15)
[2025-02-23] MEDS ORDERED: CARBOHYDRATES FOR HYPOGLYCEMIA PO PRN (21:15)
--- NOTE | 2025-02-23 21:46 | Urology Consultation ---
Date of Consultation February 23, 2025 Assessment & Plan (1) Perineal abscess: Patient has been admitted on the hospitalist service. From a urologic perspective we recommend the following: It appears that the patient has a perineal abscess with perhaps some extension into the scrotum Patient has been started on broad-spectrum antibiotics in form of Zosyn and daptomycin which should continue He is also placed on Diflucan as he has had [place] in his urine from a previous culture Tight control of his diabetes would certainly help this underlying condition the management of his diabetes will be deferred to the hospitalist service I feel the patient will ultimately require incision and drainage of the abscess with possible scrotal exploration. This is tentatively planned for 02/24/[address] Simpson but not any physician group urology. This procedure was unable to be performed on 02/23/2025 as patient was not appropriately n.p.o. at time of presentation he was noted to be hemodynamically stable without hypotension, tachycardia, fever, crepitus in the soft tissue on physical exam, or gas in the soft tissue on CT scan. Appropriate cultures have been sent thus far we will also obtain operative cultures at time of incision and drainage which will help tailor further antibiotic therapy Patient has been made n.p.o. after midnight this evening Additional recommendations will be forthcoming based on his clinical course as unfolds, operative findings, and his postoperative recovery thereafter Supervising Physician Co-Signing Physician Notes Discussed patient with ALEK. Agree with plan with the following changes below: Saw and examined patient personally. Exam consistent with erythema on glans and large perineal abscess. Recommended penile biopsy and I&D of perineal abscess. Risks and benefits discussed. Consent obtained. Discussed postoperative care and requirement of dressing changes which will likely be quite uncomfortable and will take several weeks if not months to heal. Greater than 50% of this encounter was spent with me discussing all of the noted things above. To the OR for above-noted procedure. History of Present Illness Reason for Consultation: Perineal abscess Attending Physician: Aldair Watt MD History of Present Illness This is a 69-year-old male who is well-known to [facility] urology. He was most recently seen in the emergency department on 01/22/[address] Vines secondary to urinary retention. During this visit nursing staff was unable to place a catheter due to urinary retention and Dr. Vines had to perform catheterization with urethral dilatation. Patient has had a De Souza catheter since that time. Since the patient has had this De Souza catheter placed he has subsequently developed pain in his perineum. He notes that this has gotten worse over the past 1 to 2 weeks. He notes it is painful when he sits down but he does not report any other mitigating factors. He does not report any fevers, shakes, or chills. He denies any nausea or vomiting. He does not report any urinary difficulties as he has a De Souza catheter that was placed at the a for mentioned emergency department visit. Patient also notes that he has not noted any significant drainage from the affected area. Patient does note that he is diabetic. He notes that his most recent oral intake was at 8:00 PM this evening at which time he had a full dinner. Since arrival to the emergency department he has had a soft tissue ultrasound of the perineum where patient was noted to have a 6 cm mass in the perineum. This was followed up with a CT scan of the pelvis where patient was noted to have a 6.1 x 4.2 cm fluid collection that was ring-enhancing at the junction of the perineum and scrotum and interpreted radiologist felt that this was consistent with an abscess. This was also noted to be contiguous with a 9.9 x 4.2 cm fluid collection in the posterior scrotal sac. There did not appear to be any gas in the soft tissue on this study. Labs included CBC for white blood cell count was elevated 12.5. Hemoglobin and hematocrit were 11.8 and 33.8. Platelet count was normal. Chemistry profile showed sodium was 135 with a normal potassium. BUN was elevated to 24 with a normal creatinine. Additional culture data was reviewed and the patient did have a urine culture which was obtained on 01/22/2025 that did grow [place] albicans. At the time of my interview the patient was resting comfortably in bed and he was in no distress. Allergies Allergy/AdvReac Type Severity Reaction Status Date / Time atropine Allergy Severe SEE NOTES Verified 02/19/25 11:31 BELOW Home Medications Medication Instructions Recorded Confirmed Type lancets 30 gauge (OneTouch Delica #100 ea 05/18/23 02/19/25 Rx Plus Lancet) blood-glucose sensor (Dexcom G7 #3 ea 05/27/23 02/19/25 Rx Sensor device) blood-glucose,box liner,cont #1 ea 05/27/23 02/19/25 Rx (Dexcom G7 Family Mediator) lisinopril 10 1 tab PO QAM #90 tabs 09/28/24 02/23/25 Rx mg-hydrochlorothiazide 12.5 mg tablet blood sugar diagnostic (OneTouch #100 ea 12/13/24 02/19/25 Rx Ultra Test strips) blood-glucose meter (OneTouch #1 ea 12/13/24 02/19/25 Rx Ultra2 Meter) metformin 500 mg tablet 1,000 mg (2 x 500 mg) PO BID #360 12/21/24 02/23/25 Rx tabs nystatin 100,000 unit/gram topical 1 applic topical BID PRN "BXO" 12/21/24 02/23/25 Rx cream #30 grams pen needle, diabetic 31 gauge x #100 ea 12/21/24 02/19/25 Rx 5/16" clobetasol 0.05 % topical cream 1 applic topical BID PRN Other 02/11/25 02/23/25 History ciprofloxacin HCl 500 mg tablet 500 mg PO BID #60 tabs 02/19/25 02/23/25 Rx gabapentin 100 mg tablet 300 mg (3 x 100 mg) PO DAILY #90 02/19/25 02/23/25 Rx tabs oxycodone 5 mg tablet 2.5 mg (1/2 x 5 mg) PO BID PRN 02/19/25 02/23/25 Rx pain #30 tabs insulin glargine 100 unit/mL (3 0 unit subcut QPM 02/23/25 02/23/25 History mL) subcutaneous pen (Lantus Solostar U-100 Insulin) nystatin 100,000 unit/gram topical 0 applic topical BID 02/23/25 02/23/25 History powder Patient History Medical History Actinic keratosis Seborrheic keratosis ADD (attention deficit disorder) History of urethral stricture Diabetes mellitus, type 2 Rib fracture healing left anterior seventh rib fracture 06/02/2021 CXR Morbid obesity Cardiac murmur HX OF - YOUNG AGE, no murmur noted at 2019 anesthesia consultation Hypertension Surgical History S/P arthroscopy of shoulder History of repair of rotator cuff left History of colonoscopy History of urologic surgery DVIU -most recent may 2021 History of ankle surgery R&L Family History Mother Family history of diabetes mellitus Ovarian cancer Grandfather (Paternal) Cancer Grandfather (Maternal) Myocardial infarction Denies family history of Prostate cancer Breast cancer Colorectal cancer Social History (Updated 02/24/25 @ 05:43 by Aldair Watt MD) Smoking Status: Never smoker Second Hand Exposure: No; Do You Dip or Chew Tobacco: No; Hx Alcohol Use: No Hx Substance Use: No Preferred Language: Turkish Communication Ability: Effective Visual Impairment: No Limitations Hearing Ability: Normal Collection Administrator Required: No Beliefs That Will Affect Care: None marital status: Legally Current Living Situation: Alone Current Living Situation Comment: lives in a cabin on his property current occupational status: retired 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, 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 [employer] How many Children do You have: 0 Other Information That Helps Us Care for You: No Feels Safe at Home: Yes Safety Concerns: Feels Safe At This Time Childhood Exposure to Second-Hand Smoke: Yes Diet: regular caffeine: Yes during the past year weight has: remained stable Dental Care, Regularly: Yes Physical Activity Frequency: 3-4 Times per Week Seatbelt Use: sometimes Sunscreen Use: Yes (sometimes) Do you think of yourself as: straight/heterosexual Sexual Activity: has been sexually active, but not for at least 12 months Gender Identity: Male Assistive Devices: Glasses Review of Systems Review of Systems: All systems reviewed & are unremarkable except as noted in HPI & below Physical Exam Constitutional: WD/WN, vitals as above Eyes: no conjunctival abnormality ENMT: Ears: no hearing impairment and no external ear abnormality Mouth: no oropharynx abnormality Neck: trachea midline Respiratory: normal respiratory effort; no respiratory distress and no labored breathing Cardiovascular: Rate/Rhythm: regular rate and regular rhythm Gastrointestinal (Abdomen): Soft and nontender to palpation Musculoskeletal: No calf tenderness Skin: See below description Neurologic: moves all extremities Psychiatric: A+Ox3, euthymic affect Genitourinary: Patient has a De Souza catheter in place which was present at time of admission. The De Souza catheter is patent and draining appropriately. The patient's scrotum and perineum was examined. The patient did have some generalized erythema of his scrotum and he had an area of marked swelling with a masslike structure at the junction of the scrotum and perineum which was consistent with abscess. This area was warm and tender to palpation. Results & Data Vital Signs (Past 12 Hours) Vital Signs Temp Pulse Pulse Resp BP BP Pulse Ox 02/23/25 19:41 71 18 134/78 100 02/23/25 19:00 70 17 100 02/23/25 17:51 68 02/23/25 17:21 69 20 145/87 H 98 02/23/25 13:37 36.9 C 88 18 146/77 H 99 O2 Del Method 02/23/25 19:41 Room Air 02/23/25 19:00 02/23/25 17:51 02/23/25 17:21 Room Air 02/23/25 13:37 Room Air PG Care Time/CCT Total # of Minutes Spent Total Time Spent with Patient: Total time spent is greater than 50% in coordination of care (as documented) at patient's floor/unit and/or counseling patient: Coding Level of Care Code 31278 INT INP/OBS CARE 3/75MIN Diagnoses Perineal abscess L02.215
[2025-02-23] MEDS: INSULIN ASPART PER UNIT CHARGE SC SCH (22:03)
[2025-02-23] MEDS: LANTUS PER UNIT CHARGE SQ SCH (22:03)
[2025-02-23] MEDS: SODIUM CHLORIDE 0.9% 1,000 ML IV SCH (22:05)
[2025-02-23] MEDS: PIPERACILLIN/TAZOBACTAM 4.5 GM/100 ML BAG IV SCH (22:06)
[2025-02-23] MEDS: MAGNESIUM SULFATE / D5W 1 GM/100 ML BAG IV SCH (22:06)
[2025-02-23] MEDS: GABAPENTIN 300 MG CAP PO SCH (22:07)
[2025-02-23 23:05] LABS: Hemoglobin A1C 9.1 % (4.5-5.6)
[2025-02-24] MEDS: MoRPHine SULFATE 2 MG/ML CARP IV PRN (02:03)
[2025-02-24 07:26] LABS: Hematocrit (blood only) 32.7 % (42.0-52.0); Hemoglobin 11.5 g/dL (14.0-18.0); Mean Corpuscular Hemoglobin 29.3 pg (25.0-34.0); Mean Corpuscular Volume 83.4 fL (80.0-100.0); Platelet Count 384 K/uL (130-400); RDW Standard Deviation 37.6 fL (36.4-46.3); Red Blood Count 3.92 M/uL (4.70-6.10); White Blood Count 10.98 K/ul (4.8-10.8)
[2025-02-24 07:50] LABS: Anion Gap 7.0 (3-11); Blood Urea Nitrogen 15.0 mg/dl (6-23); Calcium 9.0 mg/dl (8.6-10.3); Carbon Dioxide 29.0 mmol/L (21-32); Chloride 97.0 mmol/L (98-107); Creatinine Clr Calc Pharmacy 105.6 ml/min; Glucose 137.0 mg/dl (70-99(Fasting)); Potassium 4.2 mmol/L (3.5-5.1); Sodium 133.0 mmol/L (136-145)
[2025-02-24] MEDS: ACETAMINOPHEN 325 MG TAB PO PRN (09:36)
[2025-02-24] MEDS ORDERED: MIDAZOLAM HCL 1 MG/ML 2ML VIAL ONE (10:03)
[2025-02-24] MEDS ORDERED: LIDOCAINE 2% 2 ML VIAL/AMP(20MG/ML) INFIL ONE (10:09)
[2025-02-24] MEDS ORDERED: PROPOFOL IV EMULSION 10 MG/ML 20 ML VIAL IV ONE (10:09)
--- NOTE | 2025-02-24 10:31 | Anesthesiology Consultation ---
Date of Service February 24, 2025 Assessment & Plan Chart Review Chart Review: Acceptable Risk for Surgery Consults Requested none History Surgery Operation Date: 02/23/25 13:00 Proposed Procedures p Perineal Abscess I&D - Michael Simpson MD Operation Date: 02/24/25 13:00 Proposed Procedures p Perineal abscess I&D - Michael Simpson MD Height/Weight Height: 5 ft 7 in Weight: 109.7 kg Allergies Allergy/AdvReac Type Severity Reaction Status Date / Time atropine Allergy Severe SEE NOTES Verified 02/19/25 11:31 BELOW Medications Home Medications Medication Instructions Recorded Confirmed Last Taken lancets 30 gauge (OneTouch Delica #100 ea 05/18/23 02/19/25 Unknown Plus Lancet) blood-glucose sensor (Dexcom G7 #3 ea 05/27/23 02/19/25 Unknown Sensor device) blood-glucose,fabric inspector,cont #1 ea 05/27/23 02/19/25 Unknown (Dexcom G7 [employer]) lisinopril 10 1 tab PO QAM #90 tabs 09/28/24 02/23/25 Unknown mg-hydrochlorothiazide 12.5 mg tablet blood sugar diagnostic (OneTouch #100 ea 12/13/24 02/19/25 Unknown Ultra Test strips) blood-glucose meter (OneTouch #1 ea 12/13/24 02/19/25 Unknown Ultra2 Meter) metformin 500 mg tablet 1,000 mg (2 x 500 mg) PO BID #360 12/21/24 02/23/25 Unknown tabs nystatin 100,000 unit/gram topical 1 applic topical BID PRN "BXO" 12/21/24 02/23/25 Unknown cream #30 grams pen needle, diabetic 31 gauge x #100 ea 12/21/24 02/19/25 Unknown 5/16" clobetasol 0.05 % topical cream 1 applic topical BID PRN Other 02/11/25 02/23/25 Unknown ciprofloxacin HCl 500 mg tablet 500 mg PO BID #60 tabs 02/19/25 02/23/25 Unknown gabapentin 100 mg tablet 300 mg (3 x 100 mg) PO DAILY #90 02/19/25 02/23/25 Unknown tabs oxycodone 5 mg tablet 2.5 mg (1/2 x 5 mg) PO BID PRN 02/19/25 02/23/25 Unknown pain #30 tabs insulin glargine 100 unit/mL (3 0 unit subcut QPM 02/23/25 02/23/25 Unknown mL) subcutaneous pen (Lantus Solostar U-100 Insulin) nystatin 100,000 unit/gram topical 0 applic topical BID 02/23/25 02/23/25 Unknown powder Active Medications Generic Name Dose Route Start Last Admin Trade Name Freq PRN Reason Stop Dose Admin Acetaminophen 650 mg 02/23/25 20:59 02/24/25 09:36 Acetaminophen 325 Mg Tab PO 03/25/25 20:58 650 mg Q4H PRN Administration pain/fever Gabapentin 300 mg 02/23/25 21:00 02/23/25 22:07 Gabapentin 300 Mg Cap PO 03/25/25 20:59 300 mg HS MARIELOS Administration Piperacillin Sod/Tazobactam Sod 4.5 gm in 100 mls @ 25 mls/hr 02/23/25 22:00 02/24/25 06:07 Zosyn IV 03/02/25 21:59 25 mls/hr Q8H MARIELOS Administration Protocol Insulin Aspart 0 units 02/23/25 21:00 02/24/25 05:46 Insulin Aspart Per Unit Charge SC 03/25/25 20:59 Not Given Q6 MARIELOS Insulin Glargine 15 units 02/23/25 21:00 02/23/25 22:03 Lantus Per Unit Charge SQ 03/25/25 20:59 15 units QPM MARIELOS Administration Morphine Sulfate 2 mg 02/23/25 20:59 02/24/25 08:46 Morphine Sulfate 2 Mg/Ml Carp IV 03/09/25 20:58 2 mg Q3H PRN Administration Pain NPO Date Last Intake of Fluids: 02/23/25 Time Last Intake of Fluids: 20:00 Date Last Intake of Solids: 02/23/25 Time Last Intake of Solids: 20:00 Past Medical History Medical History Actinic keratosis Seborrheic keratosis ADD (attention deficit disorder) History of urethral stricture Diabetes mellitus, type 2 Rib fracture healing left anterior seventh rib fracture 06/02/2021 CXR Morbid obesity Cardiac murmur HX OF - YOUNG AGE, no murmur noted at 2019 anesthesia consultation Hypertension Past Family History Family History Mother Family history of diabetes mellitus Ovarian cancer Grandfather (Paternal) Cancer Grandfather (Maternal) Myocardial infarction Denies family history of Prostate cancer Breast cancer Colorectal cancer Past Surgical History Surgical History S/P arthroscopy of shoulder History of repair of rotator cuff left History of colonoscopy History of urologic surgery DVIU -most recent may 2021 History of ankle surgery R&L Social History Smoking Status: Never smoker Do You Dip or Chew Tobacco: No Hx Alcohol Use: No Hx Substance Use: No substance use type: does not use Physical Exam Vital Signs Last Vital Signs Temp 37 C 02/24/25 08:01 Pulse 72 02/24/25 08:01 Resp 18 02/24/25 08:01 BP 135/80 02/24/25 08:01 Pulse Ox 98 02/24/25 08:01 O2 Del Method Room Air 02/24/25 08:01 Testing Laboratory Results 02/24/25 06:47 02/24/25 06:47 Hemoglobin A1c 9.1 % (4.5-5.6) H 02/23/25 14:20 02/24/25 05:41 POC Glucose 149 H
[2025-02-24] MEDS ORDERED: ONDANSETRON INJ 2 MG/ML 2 ML VIAL IV PRN (10:32)
[2025-02-24] MEDS ORDERED: HYDROmorphone INJ 1 MG/ML SYRINGE IV PRN (10:32)
[2025-02-24] MEDS ORDERED: PROMETHAZINE HCL 6.25 MG in SODIUM CHLORIDE 0.9% 50 ML IV PRN (10:32)
[2025-02-24] MEDS ORDERED: ATROPINE SULFATE 0.1 MG/ML 10ML SYR IV PRN (10:32)
[2025-02-24] MEDS ORDERED: ONDANSETRON INJ 2 MG/ML 2 ML VIAL ONE (10:54)
[2025-02-24] MEDS ORDERED: PHENYLEPHRINE 100MCG/ML 5ML SYR ONE (11:30)
[2025-02-24] MEDS: BACITRACIN OINT 14 GM TUBE ONE (11:35)
[2025-02-24] MEDS: BUPIVACAINE 0.5 % 5 MG/1 ML MPF 30ML VIAL ONE (11:35)
--- NOTE | 2025-02-24 11:40 | Operative Report ---
PG Post Operative Report Pre & Post Diagnosis Operation Date: 02/24/25 13:00 Pre-Op Diagnosis: Perineal abscess, penile lesion Post-Op Diagnosis: Perineal abscess, penile lesion I identified the patient and participated in the time-out.: Yes Procedure Operation Date: 02/24/25 13:00 Actual Procedures p Incision and Drainage of Perineal Abscess, Penile Biopsy, De Souza Catheter Exchange - Michael Simpson MD Surgeon Michael Simpson MD Information Manager None Estimated Blood Loss 2 Findings See Below 1. Abnormal lesion at 10 o'clock position on glans, which is fused to shaft skin. Biopsied. 2. Large perineal abscess that tracked superiorly deep into the perineum adjacent to the urethra 3. No obvious communication between the urethra and abscess 4. Catheter exchanged without difficulty Specimens 1. Penile glans biopsy 2. Perineal abscess culture Drains 16 [place] soboba tip catheter with 10 cc in balloon Anesthesia Type General Complications none Indications 69-year-old male with multiple medical comorbidities including buried penis, BXO, poorly controlled diabetes and recent urinary retention. He required urethral dilation at the bedside on 02/11/2025. He came in with worsening perineal pain and a CT scan confirmed a perineal abscess that appeared to track along the urethra. He also has a history of a penile lesion on his glans that there was a plan for an outpatient biopsy. Description of Procedure After informed consent was obtained, the patient was transported to the operative suite. General anesthesia was induced. They were placed in dorsal lithotomy position and prepped and draped in sterile fashion. They received preoperative daptomycin and Zosyn. An appropriate surgical timeout was performed. I inspected the penis and confirmed the abnormality at the 10 o'clock position where the glans meets the hooks, which was fused due to buried penis and BXO. Using a 3 mm punch biopsy, I took a sample. Hemostasis was achieved with a [id number] 5-0 chromic. I then turned my attention the perineum. Physical exam revealed a large abscess off the left inferior aspect of the scrotum. I made a 6 cm incision with a 15 b lade and immediately expressed purulence. This was cultured and sent to the lab. Using a combination of a finger and a clamp, I performed blunt dissection which relieved more purulent discharge. Using my finger, this did tract superiorly up into the perineum near the urethra and I suspect he probably had a urine leak following his dilation that then created an abscess. This tunnel was narrow and despite careful inspection, I could not adequately visualize up into the area to see if the catheter was exposed. Based on palpation, I did not suspect that it was. Inferiorly there was a pocket that I bluntly opened as well. The entire wound was copiously irrigated with saline. During irrigation, there was no output from the urethral meatus. After the wound was irrigated, hemostasis was achieved along the skin edges. He was not due to have a catheter exchange, but I felt that exchange in the OR was going to be more successful than potentially at the bedside in the future. I removed his 16 [place] De Souza catheter after deflating the balloon. Before fully placing a new 16 [place] soboba, I advanced this partly into the urethra to the area where I suspected there was a previous injury. Using a Yenni syringe, I irrigated through the catheter to see if I could confirm any connection, however there was no fluid in the wound so I do not think there is a urethral connection any longer. Catheter was advanced all the way into the bladder with return of urine and balloon was inflated with 10 cc of sterile water. Catheter was irrigated and confirmed appropriate position. I then packed the wound with 1 inch Xeroform gauze. This was covered with an ABD. This concluded the end of the case. All counts correct at the end of the case. I was present scrubbed and actively participated for the entirety of the procedure. I attest to the content of the Intraoperative Record and any orders documented therein. Any exceptions are noted below.
--- NOTE | 2025-02-24 12:57 | Anesthesiology Progress Note ---
Date of Service February 24, 2025 Anesthesia Post Procedure Vital Signs Vital Signs: Temp Pulse Pulse Pulse Resp BP BP 02/24/25 12:30 63 13 101/58 L 02/24/25 12:20 36.5 C 64 15 130/73 02/24/25 12:10 60 13 105/63 02/24/25 12:00 60 13 99/57 L 02/24/25 11:50 35.8 C L 60 10 L 92/58 L 02/24/25 08:01 37 C 72 18 135/80 02/23/25 19:50 37 C 73 17 02/23/25 19:50 37 C 73 17 02/23/25 19:41 71 18 134/78 02/23/25 19:00 70 17 02/23/25 17:51 68 02/23/25 17:21 69 20 02/23/25 13:37 36.9 C 88 18 146/77 H BP Pulse Ox O2 Del Method O2 Flow Rate 02/24/25 12:30 96 Room Air 02/24/25 12:20 95 Room Air 02/24/25 12:10 97 Oxymask 4 02/24/25 12:00 98 Oxymask 6 02/24/25 11:50 95 Oxymask 6 02/24/25 08:01 98 Room Air 02/23/25 19:50 155/92 H 100 Room Air 02/23/25 19:50 155/92 H 100 Room Air 02/23/25 19:41 100 Room Air 02/23/25 19:00 100 02/23/25 17:51 02/23/25 17:21 145/87 H 98 Room Air 02/23/25 13:37 99 Room Air Pain Intensity Perineal: Pain Intensity: 4 Transfer of Care Handoff Completed per policy Notes Mental Status: alert / awake / arousable and participated in evaluation Patient Amnestic to Procedure: Yes Nausea / Vomiting: adequately controlled Pain: adequately controlled Airway Patency, RR, SpO2: stable & adequate BP & HR: stable & adequate Hydration State: stable & adequate Anesthetic Complications: no major complications apparent
[2025-02-24] MEDS ORDERED: Nursing to Pharmacy Communication SCH (13:45)
[2025-02-24] MEDS: INSULIN ASPART PER UNIT CHARGE SC SCH (14:27)
--- NOTE | 2025-02-24 15:21 | Electrocardiogram Report ---
Test Reason : Blood Pressure : */* mmHG Vent. Rate : 70 BPM Atrial Rate : 70 BPM P-R Int : 226 ms QRS Dur : 108 ms QT Int : 408 ms P-R-T Axes : 94 73 39 degrees QTcB Int : 440 ms Sinus rhythm with 1st degree A-V block Low voltage QRS Borderline ECG When compared with ECG of 11-Feb-2025 13:29, Minimal criteria for Anterior infarct are no longer Present Confirmed by Erin Wong (Efrem) on 02/24/2025 3:20:52 PM Referred By: Latosha Mccallum Confirmed By: Erin Wong
--- NOTE | 2025-02-24 15:37 | Hospitalist Progress Note ---
Date of Service February 24, 2025 Assessment & Plan (1) Perineal abscess: (2) Penile lesion: (3) Uncontrolled diabetes mellitus with hyperglycemia: (4) Hyperlipidemia: (5) Juana rash of groin: (6) Morbid obesity: (7) Hypertension: (8) BPH loc w urin obs/LUTS: (9) History of urethral stricture: (10) Candidal UTI (urinary tract infection): Plan 69yo male with T2DM, HTN, diabetic neuropathy, obesity, ADD, balanitis xerotica obliterans, BPH, hypospadias, lichen sclerosis of the foreskin, recent urethral dilatation for urethral stricture (02/11/25), and recent delacruz catheter placement by urology (Dr Vines - 02/11/25). Presents with 2 weeks of worsening perineal pain and swelling. #perineal abscess - -as seen on CT pelvis at time of admission & on examination -s/p I & D of abscess today by Dr Simpson, [facility] [place] Urology -intra-op culture sent/pending -due to recent juana seen on urine cx as well as candidal-appearing rash in groin will continue candidal coverage with diflucan 200mg IV daily; day #2 of such -for typical bacterial pathogens continue zosyn/daptomycin, day #2 of each -morphine prn pain -can stop IV fluids later tonight if eating/drinking -blood cultures thus far negative -follow intra-op culture -appreciate urology assistance -wound care - will he need a wound vac? simple packing only moving forward? defer to urology #candidal UTI - -c albicans grew on 02/11/25 urine culture -he received a single dose of diflucan on 02/11/25 but none since -will cont diflucan 200mg IV daily; day #2 #urethral stricture s/p dilatation and LUTS - s/p delacruz placement 02/11 - -delacruz exchanged by Dr Simpson in the OR today #uncontrolled T2DM - -cont lantus 15 units HS; titrate as needed -novolog SSI for meals/correction -Hba1c 9.1% -BSGs ac/hs -hold metformin #hypomagnesemia - -s/p IV mag with normalized level today -2nd to chronic HCTZ use; this has been placed on hold #HTN - -hold lisinopril-HCTZ today -likely resume 1 or both meds tomorrow #diabetic neuropathy of hands/feet - -cont gabapentin #BPH - -consider flomax ? defer to urology #hyperlipidemia - -he is not on therapy for such #penile lesion on hooks of penis - -s/p biopsy today by Dr Simpson #candidal groin rash - -diflucan should be more than adequate #housing insecurity - -will need social work assistance with this given he does not have a shower/bath-tub #DVT Proph - -urology ok with starting DVT proph tomorrow AM, 02/25 Admission and Anticipated Discharge Date Admission Date: February 23, 2025 Subjective saw patient post-op from his perineal abscess I/D he was sleepy but arousable and answered questions other than mild pain in scrotal/groin region he was resting comfortably denied any chest pain, dyspnea, or abd pain no nausea/emesis asked how long he might be in hospital we briefly discussed if he would need rehab post-d/c for wound care, etc. Review of Systems Review of Systems: gen - no fevers or chills pulm - no orthopnea/PND Physical Exam Physical Exam: gen - lying in bed, NAD HENT - MMM neck - no JVD heart - RRR, s1 s2, no murmur lungs - CTA b/l abd - soft NT ND BS+; umbilical hernia - reducible; no HSM - deferred ext - stasis changes b/l shins, pulses b/l feet 2+, no edema Results & Data Results & Data Vital Signs (Past 12 Hours) Vital Signs Temp Pulse Pulse Resp BP Pulse Ox O2 Del Method 02/24/25 14:45 36.9 C 73 18 123/73 98 Room Air 02/24/25 13:45 36.6 C 64 16 131/76 98 Room Air 02/24/25 13:12 36.5 C 60 16 124/79 97 Room Air 02/24/25 12:30 63 13 101/58 L 96 Room Air 02/24/25 12:20 36.5 C 64 15 130/73 95 Room Air 02/24/25 12:10 60 13 105/63 97 Oxymask 02/24/25 12:00 60 13 99/57 L 98 Oxymask 02/24/25 11:50 35.8 C L 60 10 L 92/58 L 95 Oxymask 02/24/25 08:01 37 C 72 18 135/80 98 Room Air O2 Flow Rate 02/24/25 14:45 02/24/25 13:45 02/24/25 13:12 02/24/25 12:30 02/24/25 12:20 02/24/25 12:10 4 02/24/25 12:00 6 02/24/25 11:50 6 02/24/25 08:01 Laboratory Results Laboratory Results - last 24 hr 02/24/25 02/24/25 02/24/25 05:41 06:47 11:54 WBC 10.98 H RBC 3.92 L Hgb 11.5 L Hct 32.7 L MCV 83.4 MCH 29.3 MCHC 35.2 RDW Std Deviation 37.6 RDW Coeff of Jodi 12.3 Plt Count 384 MPV 9.2 L Sodium 133 L Potassium 4.2 Chloride 97 L Carbon Dioxide 29 Anion Gap 7 BUN 15 Creatinine 0.78 Est Cr Clr Drug Dosing 105.6 eGFR 96.53 BUN/Creatinine Ratio 19.2 Glucose 137 H POC Glucose 149 H 117 H Calcium 9.0 Magnesium 1.9 Diagnostic Findings Microbiology 02/23/25 14:28 Blood Aerobic Blood Culture - Preliminary No growth in Aerobic bottle after 24 hours. 02/23/25 14:28 Blood Anaerobic Blood Culture - Preliminary No growth in Anaerobic bottle after 24 hours. 02/23/25 14:20 Blood Aerobic Blood Culture - Preliminary No growth in Aerobic bottle after 24 hours. 02/23/25 14:20 Blood Anaerobic Blood Culture - Preliminary No growth in Anaerobic bottle after 24 hours. 02/24/25 Unknown Scrotum Gram Stain - Final PG Care Time/CCT Total # of Minutes Spent Total Time Spent with Patient: Total time spent is greater than 50% in coordination of care (as documented) at patient's floor/unit and/or counseling patient: Coding Level of Care Code 18906 SUB INP/OBS CARE 2/35MIN Diagnoses Perineal abscess L02.215 Penile lesion N48.9 Uncontrolled type 2 diabetes mellitus with hyperglycemia E11.65 Diabetes mellitus type: type 2 Mixed hyperlipidemia E78.2 Hyperlipidemia type: mixed hyperlipidemia [place] rash of groin B37.89 Morbid obesity E66.01 Primary hypertension I10 Hypertension type: primary hypertension BPH loc w urin obs/LUTS N40.1 History of urethral stricture Z87.448 Candidal UTI (urinary tract infection) B37.49 (3) Uncontrolled diabetes mellitus with hyperglycemia Diabetes mellitus type: type 2 Qualified Code(s): E11.65 - Type 2 diabetes mellitus with hyperglycemia (4) Hyperlipidemia Hyperlipidemia type: mixed hyperlipidemia Qualified Code(s): E78.2 - Mixed hyperlipidemia (7) Hypertension Hypertension type: primary hypertension Qualified Code(s): I10 - Essential (primary) hypertension
[2025-02-24] MEDS: DAPTOmycin 500 MG in SYRINGE 0 ML IV SCH (17:25)
[2025-02-24] MEDS: FLUCONAZOLE 200 MG/100 ML BAG IV SCH (17:25)
[2025-02-25 06:57] LABS: Anion Gap 8.0 (3-11); Blood Urea Nitrogen 16.0 mg/dl (6-23); Calcium 9.4 mg/dl (8.6-10.3); Carbon Dioxide 28.0 mmol/L (21-32); Chloride 100.0 mmol/L (98-107); Creatinine Clr Calc Pharmacy 117.7 ml/min; Glucose 110.0 mg/dl (70-99(Fasting)); Potassium 4.4 mmol/L (3.5-5.1); Sodium 136.0 mmol/L (136-145)
[2025-02-25 07:13] LABS: Thyroid Stimulating Hormone 3.023 uIu/ml (0.300-4.500)
--- NOTE | 2025-02-25 08:34 | Hospitalist Progress Note ---
Date of Service February 25, 2025 Assessment & Plan (1) Perineal abscess: (2) Penile lesion: (3) Uncontrolled diabetes mellitus with hyperglycemia: (4) Hyperlipidemia: (5) [place] rash of groin: (6) Morbid obesity: (7) Hypertension: (8) BPH loc w urin obs/LUTS: (9) History of urethral stricture: (10) Candidal UTI (urinary tract infection): Plan 69yo male with T2DM, HTN, diabetic neuropathy, obesity, ADD, balanitis xerotica obliterans, BPH, hypospadias, lichen sclerosis of the foreskin, recent urethral dilatation for urethral stricture (02/11/25), and recent delacruz catheter placement by urology (Dr Vines - 02/11/25). Presents with 2 weeks of worsening perineal pain and swelling. #perineal abscess -as seen on CT pelvis at time of admission & on examination S/P I&D of abscess 02/[address] Simpson, [facility] [place] [facility] Intra-op culture sent/pending -due to recent juana seen on urine cx as well as candidal-appearing rash in groin will continue candidal coverage with diflucan 200mg IV daily; day #3 of such -for typical bacterial pathogens continue zosyn/daptomycin, day #3 of each Morphine prn pain, added oxycodone IVF discontinued 02/24 as eating/drinking Blood cultures NGTD - continue to monitor Monitor final intra-operative culture, de-escalate abx as able -appreciate urology assistance - they are to arrange outpatient follow up (possible tertiary center given complicated urologic history) -wound care - will he need a wound vac? simple packing only moving forward? defer to urology #candidal UTI -c albicans grew on 02/11/25 urine culture Received a single dose of diflucan on 02/11/25 but none since --> was resumed/continued diflucan 200mg IV daily; day #3 (on 02/25) #urethral stricture s/p dilatation and LUTS - s/p delacruz placement 02/11 - Delacruz exchanged by Dr Simpson in the OR 02/24 and is to remain in place, DO NOT REMOVE #uncontrolled T2DM Hba1c 9.1% Home medications held Placed on lantus 15 units HS; titrate as needed, SSI w/ meals -BSGs ac/hs #hypomagnesemia - -s/p IV mag with normalized level 02/24 2nd to chronic HCTZ use; this has been placed on hold . Repeat level w/ AM labs #HTN - Hold lisinopril-HCTZ today Likely resume 1 or both meds tomorrow #diabetic neuropathy of hands/feet - Continued gabapentin #BPH Consider flomax ? defer to urology #hyperlipidemia - He is not on therapy for such #penile lesion on hooks of penis - -s/p biopsy today by Dr Simpson #candidal groin rash - -diflucan should be more than adequate #housing insecurity - -will need social work assistance with this given he does not have a shower/bath-tub --> CM consult placed 02/25 #DVT Proph - -urology ok with starting DVT proph tomorrow AM, 02/25-- Lovenox 40mg sq has been ordered Dispo: continued inpatient stay on IV abx/anti-fungals, monitoring cultures. Continued wound care and urology assistance appreciated. ?need for PT/OT evals Admission and Anticipated Discharge Date Admission Date: February 23, 2025 Supervising Physician Co-Signing Physician Notes Attending Attestation - Chart reviewed, care plan d/w AWA Corrales. I agree w/ the santos components of her documentation. Waiting on intra-op perineal abscess culture. Remains on IV zosyn/daptomycin/diflucan. Appreciate urology assistance. Aldair Watt MD Subjective Evaluated this morning. Doing well. Reports using morphine less frequently, less painful. Reports Dr Simpson was just in and changes dressing/packing. Ongoing inpatient stay on antibiotics and monitoring cultures. No fever/chills, chest pain, shortness of breath, abdominal pain, nausea or other issues reported. Questions/concerns addressed at this time. Review of Systems 2 Review of Systems: All systems reviewed & are unremarkable except as noted in HPI & below Physical Exam 2 Physical Exam: General: 69yo male resting in bed, NAD HEENT: head atraumatic, normocephalic, mmm, trachea midline, +facial hair Resp: even/unlabored, no wheezing/rales, on room air (CPAP in room) CV: RRR, no significant m/r/g GI: +BS, soft/NT : delacruz with clear yellow urine, left perineal incision site with packing just placed by urology. +tenderness/reduced erythema Ext - stasis changes b/l shins, pulses b/l feet 2+, no edema Results & Data Results & Data Vital Signs (Past 12 Hours) Vital Signs Temp Pulse Resp BP Pulse Ox O2 Del Method 02/25/25 05:26 36.7 C 71 20 123/77 98 Room Air, CPAP 02/25/25 01:18 36.7 C 61 19 148/84 H 97 Room Air Laboratory Results 02/24/25 06:47 02/25/25 06:03 PG Care Time/CCT Total # of Minutes Spent Total Time Spent with Patient: Total time spent is greater than 50% in coordination of care (as documented) at patient's floor/unit and/or counseling patient: Coding Level of Care Code 18020 SUB INP/OBS CARE 2/35MIN Diagnoses Perineal abscess L02.215 Penile lesion N48.9 Uncontrolled type 2 diabetes mellitus with hyperglycemia E11.65 Diabetes mellitus type: type 2 Mixed hyperlipidemia E78.2 Hyperlipidemia type: mixed hyperlipidemia [place] rash of groin B37.89 Morbid obesity E66.01 Primary hypertension I10 Hypertension type: primary hypertension BPH loc w urin obs/LUTS N40.1 History of urethral stricture Z87.448 Candidal UTI (urinary tract infection) B37.49 (3) Uncontrolled diabetes mellitus with hyperglycemia Diabetes mellitus type: type 2 Qualified Code(s): E11.65 - Type 2 diabetes mellitus with hyperglycemia (4) Hyperlipidemia Hyperlipidemia type: mixed hyperlipidemia Qualified Code(s): E78.2 - Mixed hyperlipidemia (7) Hypertension Hypertension type: primary hypertension Qualified Code(s): I10 - Essential (primary) hypertension
--- NOTE | 2025-02-25 08:54 | Urology Progress Note ---
Date of Service February 25, 2025 Assessment & Plan (1) Penile lesion: (2) Perineal abscess: Plan 69-year-old male who is status post penile biopsy and incision and drainage of perineal abscess with exchange of De Souza catheter on 02/24/2025 Patient was premedicated and his packing was exchanged. No concern for recurrence of abscess. Patient tolerated relatively well Continue broad-spectrum antibiotics and follow-up cultures Maintain De Souza catheter. Do not remove. Remainder of care per primary team. Will defer to wound nursing for dressing changes starting tomorrow. A consult has already been placed. Urology to follow peripherally. Urology will schedule appropriate outpatient follow-up however patient may require repeat referral to tertiary care center as an outpatient given his complicated urologic history Admission and Anticipated Discharge Date Admission Date: February 23, 2025 Subjective Afebrile with stable vitals. Labs today showed creatinine of 0.7. Cultures are pending but aerobic cultures are prelim negative after 24 hours Physical Exam Physical Exam: General: Alert and oriented, no acute distress HEENT: Normocephalic, mucous membranes moist Pulmonary: Nonlabored respirations Abdomen: Nondistended : De Souza catheter draining clear urine. Partially buried penis with fused glans skin. Area of biopsy hemostatic. Left perineal incision after packing removed clean dry with no bleeding or concern for recurrence of abscess Extremities: Moves all 4 spontaneously Neuro: No gross deficits Skin: Warm, dry, no rashes noted Results & Data Vital Signs (Past 12 Hours) Vital Signs Temp Pulse Resp BP Pulse Ox O2 Del Method 02/25/25 05:26 36.7 C 71 20 123/77 98 Room Air, CPAP 02/25/25 01:18 36.7 C 61 19 148/84 H 97 Room Air PG Care Time/CCT Total # of Minutes Spent Total Time Spent with Patient: Total time spent is greater than 50% in coordination of care (as documented) at patient's floor/unit and/or counseling patient: Coding Level of Care Code 18539 SUB INP/OBS CARE 2/35MIN Diagnoses Penile lesion N48.9 Perineal abscess L02.215
[2025-02-25] MEDS: ENOXAPARIN INJ 40 MG/0.4 ML SYR SQ SCH (09:04)
[2025-02-26 07:28] LABS: Hematocrit (blood only) 36.4 % (42.0-52.0); Hemoglobin 12.1 g/dL (14.0-18.0); Mean Corpuscular Hemoglobin 28.5 pg (25.0-34.0); Mean Corpuscular Volume 85.8 fL (80.0-100.0); Platelet Count 449 K/uL (130-400); RDW Standard Deviation 39.1 fL (36.4-46.3); Red Blood Count 4.24 M/uL (4.70-6.10); White Blood Count 7.56 K/ul (4.8-10.8)
[2025-02-26 07:57] LABS: Anion Gap 7.0 (3-11); Blood Urea Nitrogen 20.0 mg/dl (6-23); Calcium 9.5 mg/dl (8.6-10.3); Carbon Dioxide 30.0 mmol/L (21-32); Chloride 99.0 mmol/L (98-107); Creatinine Clr Calc Pharmacy 95.8 ml/min; Glucose 99.0 mg/dl (70-99(Fasting)); Magnesium 2.1 mg/dl (1.7-2.4); Potassium 3.9 mmol/L (3.5-5.1); Sodium 136.0 mmol/L (136-145)
--- NOTE | 2025-02-26 08:47 | Hospitalist Progress Note ---
Date of Service February 26, 2025 Assessment & Plan (1) Perineal abscess: (2) Penile lesion: (3) History of urethral stricture: (4) Candidal UTI (urinary tract infection): (5) Uncontrolled diabetes mellitus with hyperglycemia: (6) Morbid obesity: (7) Hypertension: Plan 69yo male with T2DM, HTN, diabetic neuropathy, obesity, ADD, balanitis xerotica obliterans, BPH, hypospadias, lichen sclerosis of the foreskin, recent urethral dilatation for urethral stricture (02/11/25), and recent delacruz catheter placement by urology (Dr Vines - 02/11/25). Presents with 2 weeks of worsening perineal pain and swelling. #perineal abscess| penile lesion on hooks of penis - | urethral stricture s/p dilatation and LUTS - s/p delacruz placement 02/11 --as seen on CT pelvis at time of admission & on examination Urology consulted - S/P I&D of abscess wiht penile bx and delacruz catheter exchange 02/[address] Simpson, they will arrange OP f/u as may need [facility] Delacruz exachaged by urology - DO NOT REMOVE Blood cultures NG 48 hours Intra-op culture sent/pending: no growth to date, pinpoint reincubating - if no growth, would consider pseudomonas coverage given uncontrolled DM Continue Diflucan for bhavna in urine and candidal rash Continue Zosyn/dapto for empiric coverage Morphine prn pain, added oxycodone wound care consulted for final recs - wound vac vs packing #candidal UTI -c albicans grew on 02/11/25 urine culture Diflucan as above #uncontrolled T2DM with neuropathy Hba1c 9.1% Home medications: lantus, metformin - held Continue gabapentin Placed on lantus 15 units HS; SSI w/ meals BSG acceptable #hypomagnesemia - repleted IV and resolved. #HTN - Resume lisinopril-HCTZ today #housing insecurity - currently living in "shack" on his property without running water as going through divorce/seperation and she is staying in the home. We discussed if he would be able to use the bathroom at certain times, but did not think that would be an option despite him being the one paying for the home. 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 Encouraged patient to keep working through his rescources and asked CM to provide list of [facility] homes for patient to consider. DVT Proph - lovenox 40mg sq Dispo: continued inpatient stay on IV abx/anti-fungals, monitoring cultures. Continued wound care and urology assistance appreciated. Admission and Anticipated Discharge Date Admission Date: February 23, 2025 Supervising Physician Co-Signing Physician Notes Attending Attestation - Chart reviewed, care plan d/w AWA Parisi. I agree w/ the santos components of her documentation. Intra-op perineal abscess culture grew bhavna albicans. Recent urine culture also with bhavna albicans. The perineal abscess was quite severe. I suspect there probably was a bacterial component in addition to fungal component. Even if culture does not grow a specific bacterial pathogen would favor a course of IV/PO abx to cover for entergic/ pathogens. Cont IV diflucan for c albicans. Aldair Watt MD Subjective Patient seen lying in bed, reports that his pain is well-controlled if he is not moving it can flare when he does move. Has not seen urology yet today. Also has not seen wound care. He does not know what his activity restrictions will be. He is very worried about returning to the shack that is on his property as he states there are mice living there and that it is not clean for his wound and he would need clean sheets and it to be thoroughly cleaned as it has not been cleaned in years. No issues with appetite, did have a bowel movement. Review of Systems Review of Systems: All systems reviewed & are unremarkable except as noted in Subjective Physical Exam Physical Exam: General: NAD, VS as above Resp: normal respiratory effort, lungs clear to auscultation CV: RRR, no murmur, Abd: normal bowel sounds, non tender, soft Extremities: Moves all extremities, no edema : delacruz in place, draining appropaitely, bandage from surgery not removed Neuro: A&O x3, Results & Data Results & Data Vital Signs (Past 12 Hours) Vital Signs Temp Pulse Resp BP Pulse Ox O2 Del Method 02/26/25 07:11 98.4 F 73 17 142/89 H 98 Room Air 02/25/25 22:33 97.3 F L 86 16 134/71 98 Room Air Laboratory Results cbc and chemistry reviewed PG Care Time/CCT Total # of Minutes Spent Total Time Spent with Patient: Total time spent is greater than 50% in coordination of care (as documented) at patient's floor/unit and/or counseling patient: Coding Level of Care Code 62871 SUB INP/OBS CARE 2/35MIN Diagnoses Perineal abscess L02.215 Penile lesion N48.9 History of urethral stricture Z87.448 Candidal UTI (urinary tract infection) B37.49 Uncontrolled type 2 diabetes mellitus with hyperglycemia E11.65 Diabetes mellitus type: type 2 Morbid obesity E66.01 Primary hypertension I10 Hypertension type: primary hypertension (5) Uncontrolled diabetes mellitus with hyperglycemia Diabetes mellitus type: type 2 Qualified Code(s): E11.65 - Type 2 diabetes mellitus with hyperglycemia (7) Hypertension Hypertension type: primary hypertension Qualified Code(s): I10 - Essential (primary) hypertension
[2025-02-26] MEDS: LISINOPRIL/HCTZ 10/12.5MG TAB PO SCH (10:00)
--- NOTE | 2025-02-26 13:47 | Urology Progress Note ---
Date of Service February 26, 2025 Assessment & Plan (1) Perineal abscess: (2) Penile lesion: Plan 69-year-old male who is status post penile biopsy and incision and drainage of perineal abscess with exchange of De Souza catheter on 02/24/2025 Urology changed dressing today as it was unclear if wound nursing would see him today or not No concern for recurrence of abscess Culture is growing Juana and penile biopsy is still pending Urology will set up appropriate follow-up once biopsy results are back. I will call the patient with results if he is discharged before then. Can consider ID consult for duration of treatment for yeast found in wound Urology to sign off Admission and Anticipated Discharge Date Admission Date: February 23, 2025 Subjective No acute issues overnight. Afebrile with stable vitals. Labs show a white blood cell count of 7.5, hemoglobin 12.1, and biopsy results are pending. Perineal wound is growing Juana at this point. Physical Exam Physical Exam: General: Alert and oriented, no acute distress HEENT: Normocephalic, mucous membranes moist Pulmonary: Nonlabored respirations Abdomen: Nondistended : De Souza catheter draining clear urine. Partially buried penis with fused glans skin. Area of biopsy hemostatic. Left perineal incision after packing removed clean dry with no bleeding or concern for recurrence of abscess Extremities: Moves all 4 spontaneously Neuro: No gross deficits Skin: Warm, dry, no rashes noted Results & Data Vital Signs (Past 12 Hours) Vital Signs Temp Pulse Resp BP Pulse Ox O2 Del Method 02/26/25 07:11 36.9 C 73 17 142/89 H 98 Room Air PG Care Time/CCT Total # of Minutes Spent Total Time Spent with Patient: Total time spent is greater than 50% in coordination of care (as documented) at patient's floor/unit and/or counseling patient: Coding Level of Care Code 82061 SUB INP/OBS CARE 35MIN Diagnoses Perineal abscess L02.215 Penile lesion N48.9
[2025-02-26] MEDS: AMOXICILLIN/CLAVULANATE 875 MG TAB PO SCH (17:50)
--- NOTE | 2025-02-27 14:32 | Hospitalist Progress Note ---
Date of Service February 27, 2025 Assessment & Plan (1) Perineal abscess: (2) Penile lesion: (3) History of urethral stricture: (4) Candidal UTI (urinary tract infection): (5) Uncontrolled diabetes mellitus with hyperglycemia: (6) Morbid obesity: (7) Hypertension: Plan 69yo male with T2DM, HTN, diabetic neuropathy, obesity, ADD, balanitis xerotica obliterans, BPH, hypospadias, lichen sclerosis of the foreskin, recent urethral dilatation for urethral stricture (02/11/25), and recent delacruz catheter placement by urology (Dr Vines - 02/11/25). Presents with 2 weeks of worsening perineal pain and swelling. #perineal abscess| penile lesion on hooks of penis - | urethral stricture s/p dilatation and LUTS - s/p delacruz placement 02/11 --as seen on CT pelvis at time of admission & on examination Urology consulted - S/P I&D of abscess wiht penile bx and delacruz catheter exchange 02/[address] Simpson, they will arrange OP f/u as may need [facility] Delacruz exachaged by urology - DO NOT REMOVE Blood cultures NG 48 hours Intra-op culture sent/pending: [place] Continue Diflucan, can convert to PO for discharge for total 14 day coursev 02/24-03/10 Discontinued Zosyn/dapto, will continue augmentin for 7 day abx course 02/24- 03/03 Morphine prn pain, added oxycodone wound care consulted - new packing placed today, plan for OP wound care follow up #candidal UTI -c albicans grew on 02/11/25 urine culture Diflucan as above #uncontrolled T2DM with neuropathy Hba1c 9.1% Home medications: lantus, metformin - held Continue gabapentin Placed on lantus 15 units HS; SSI w/ meals family life educator following - plan to iniate CGM for better glucose monitoring #hypomagnesemia - repleted IV and resolved. #HTN - Resume lisinopril-HCTZ #housing insecurity - currently living in "shack" on his property without running water as going through divorce/seperation and she is staying in the home. We discussed if he would be able to use the bathroom at certain times, but did not think that would be an option despite him being the one paying for the home. He does have a ground hand involved. Encouraged patient to keep working through his resources and asked CM to provide list of [facility] homes for patient to consider. Patient reports has arrange d stable housing until 03/10 and then has arrangements to get back into his home DVT Proph - lovenox 40mg sq Dispo: continued inpatient stay on IV anti-fungals, wound care reassement tomorrow, then hopeful for discharge tomorrow case discussed with certified adapted physical educator, CM and wound care nurse and urology Admission and Anticipated Discharge Date Admission Date: February 23, 2025 Supervising Physician Co-Signing Physician Notes Attending Attestation - Chart reviewed, care plan d/w AWA Parisi. I agree w/ the santos components of her documentation. Aldair Watt MD Subjective patient seen lying in bed, doing okay has secured some housing arrangments plan is for OP wound care centre follow up for packing. we discussed his wound culture results Review of Systems Review of Systems: All systems reviewed & are unremarkable except as noted in Subjective Physical Exam Physical Exam: General: NAD, vitals as above, sitting on the side of bed Pulm: breathing unlabored CV: well perfused extremities: moves all extremities : delacruz in place, draining appropaitely, bandage from surgery not removed Results & Data Results & Data Vital Signs (Past 12 Hours) Vital Signs Temp Pulse Resp BP Pulse Ox O2 Del Method 02/27/25 12:55 98.1 F 83 14 112/69 97 Room Air 02/27/25 07:20 Room Air 02/27/25 07:06 98.4 F 90 17 107/62 96 Room Air Laboratory Results POC glucose reviewed PG Care Time/CCT Total # of Minutes Spent Total Time Spent with Patient: Total time spent is greater than 50% in coordination of care (as documented) at patient's floor/unit and/or counseling patient: Coding Level of Care Code 97612 SUB INP/OBS CARE 3/50MIN Diagnoses Perineal abscess L02.215 Penile lesion N48.9 History of urethral stricture Z87.448 Candidal UTI (urinary tract infection) B37.49 Uncontrolled type 2 diabetes mellitus with hyperglycemia E11.65 Diabetes mellitus type: type 2 Morbid obesity E66.01 Primary hypertension I10 Hypertension type: primary hypertension (5) Uncontrolled diabetes mellitus with hyperglycemia Diabetes mellitus type: type 2 Qualified Code(s): E11.65 - Type 2 diabetes mellitus with hyperglycemia (7) Hypertension Hypertension type: primary hypertension Qualified Code(s): I10 - Essential (primary) hypertension
[2025-02-28 07:57] VITALS: BP 123/74; PULSE 65; RESP 18; TEMP 98.2; O2SAT 100
--- NOTE | 2025-02-28 15:00 | Discharge Summary ---
Discharge Summary Date of Service February 28, 2025 Principal Dx & Hospital Course #1 = Principal Diagnosis (1) Perineal abscess: (2) Penile lesion: (3) History of urethral stricture: (4) Candidal UTI (urinary tract infection): (5) Uncontrolled diabetes mellitus with hyperglycemia: (6) Morbid obesity: (7) Hypertension: Plan #perineal abscess| penile lesion on hooks of penis - | urethral stricture s/p dilatation and LUTS 69yo male with T2DM, HTN, diabetic neuropathy, obesity, ADD, balanitis xerotica obliterans, BPH, hypospadias, lichen sclerosis of the foreskin, recent urethral dilatation for urethral stricture (02/11/25), and recent delacruz catheter placement by urology (Dr Vines - 02/11/25). Presents with 2 weeks of worsening perineal pain and swelling. CT pelvis with perineal abscess. Urology consulted - S/P I&D of abscess with penile bx and delacruz catheter exchange 02/[address] Simpson, they will arrange OP f/u as may need tertiary center. Delacruz exchanged by urology - DO NOT REMOVE, per Dr. Simpson will remain in indefinitely. Intra-op culture sent/pending: Bhavna - will complete 14 day course of Diflucan. Given complexity of wound will also complete 7 day course of abx with augmentin. wound care to see patient - plan for OP follow up, appointment scheduled for 03/02. Blood cultures NG 48 hours #candidal UTI -c albicans grew on 02/11/25 urine culture. Diflucan as above #uncontrolled T2DM with neuropathy - continue home reigmen. continue gabapentin. Seen by inclusion paraeducator - CGM initiated for better glucose monitoring/control and wound healing. #hypomagnesemia - repleted IV and resolved. #HTN - Continue lisinopril-HCTZ #housing insecurity - currently living in "shack" on his property without running water as going through divorce/separation and she is staying in the home. We discussed if he would be able to use the bathroom at certain times, but did not think that would be an option despite him being the one paying for the home. He does have a mgmt consultant involved. Encouraged patient to keep working through his resources and asked CM to provide list of [facility] homes for patient to consider. Patient reports has arrange d stable housing until 03/10 and then has arrangements to get back into his home Dispo: discharge to home with outpatient wound care and urology follow up case discussed with inclusion paraeducator, ANDREEA and wound care nurse. urology notified of patient discharge Notes For Next Care Provider close wound care follow up needed Medication Changes From Visit course of diflucan course of augmentin Admission HPI Per Admitting Provider 69yo male with T2DM, HTN, diabetic neuropathy, obesity, ADD, balanitis xerotica obliterans, BPH, hypospadias, lichen sclerosis of the foreskin, recent urethral dilatation for urethral stricture, and recent delacruz catheter placement. Presents with 2 weeks of worsening perineal pain and swelling. On 02/06 he saw his PCP for a routine wellness visit and at that time was c/o dysuria as well as rash in his groin. On 02/11 he came to the [facility] ER with 2 days of difficulty voiding as well as worsening rash in the groin. Attempts to place a delacruz were unsuccessful and urology was consulted for assistance with such. Dr Spencer Vines [place] [facility] [place] Mr Rinaldi and performed urethral dilatation and delacruz placement. He was given a dose of diflucan for the rash in his groin, urine culture was sent, and he was placed on a 10-day course of bactrim. Urine culture ultimately grew bhavna albicans. During that ER visit he was having some mild perineal pain but by report there was nothing on physical exam to account for that pain. On 02/19 he had a f/u visit with his PCP's office and his bactrim was changed to cipro for concerns of prostatitis. His perineal pain had been worsening to the point of needing narcotic pain medicine to stay comfortable. Plans were for urgent urology referral. Within a couple of days of this last primary care visit the perineal region started to become very swollen and even more tender. It got to the point where he could not sit in a chair due to the severity of the pain. No drainage. Denies any fevers or chills. Delacruz has remained in place since the 02/11 ER visit. He finally came to the ER today due to the severity of the pain. Patient reports he is going through a divorce and has been staying in a cabin on the property where his main home is. This cabin has heat & electricity but he does not have a shower/bath-tub. He has been making plans to shower at a neighbor's home. Discharge Exam General: NAD, vitals as above, sitting on the side of bed Pulm: breathing unlabored CV: well perfused extremities: moves all extremities : delacruz in place, with banadage and packing Discharge Plan Discharge Items Patient Disposition: Home - Self-Care Reason For Visit: PERINEAL ABSCESS Discharge Diagnosis: Perineal Abscess Condition on Discharge: Fair Activity: As commented below Activity Comment: gradually increase as tolerated Lifting: Gradually increase as tolerated Bathing: Keep incision dry Driving/Machine Use: No limitations Weightbearing: Full weightbearing Non-emergency contact: Primary Care Provider Call non-emergency contact if: you have any medication questions, your symptoms worsen, your pain is not controlled, your temperature is above 101 and your temperature is above 101.5 Follow-up/Referrals: Latosha Mccallum CRNP [Primary Care Provider] - 03/06/25 10:30 am (follow up within one week ) Clarita Mata DO, FACEP [Physician] - 03/02/25 11:00 am (Keep appointment 03/02 11:00 AM ) Michael Simpson MD [Physician] - (F/u as directed ) Diet: Carb Consistent or DM2 Addtl Attending Provider Instructions: Mr. Rinaldi, You were hospitalized after having worsening perineal pain - found to be an abscess that was taken to the OR and drained by Dr. Simpson on 02/24. Your wound cultures grew bhavna (yeast) and you have been treated with antifungals - called fluconazole. This you will continue for the next 10 days, please take the first dose tonight. Given how your wound looked on admission decison was also made to complete a short course of antibiotics - you were prescribed augmentin, the next dose is for tonight. It is going to be very important that you have proper wound care and control your blood sugars to have the best chance of this wound healing properly. You have an appointment at the wound care center Wednesday at 11:00am. Until then continue to change the Abd pad as directed, keep the area clean and dry. You were restarted on the CGM to help with better glucose monitoring. You will need to follow up with urology, catheter to remain in place until you are seen by them. They will be notified of your discharge, if you do not hear from them by Wednesday please call the number above. Per urology nor formal lifting restrictions, please listen to your body and do not over exert. Stop activity if you have pain, shortness of breath or feel dizzy. You have blood cultures pending at the time of discharge, they are negative at 48 hours but take 5 days to get final results. If they turn positive you will be notified, you can also check in with your PCP or the [facility] portal. However, given your symptoms I do not expect they will be positive. Follow-up appointments: Make an appointment with your primary care physician within one week of discharge. A copy of this summary will be sent to them. Every time you see your primary care physician, or any other doctor, bring your medication list, and a list of questions. CONTACT YOUR PRIMARY CARE PROVIDER if you experience any of the following: Shortness of breath or difficulty breathing Fevers or chills Feeling tired with normal activity or experiencing dizziness or fainting Difficulty following your treatment plan, or difficulty taking medications CALL 911 OR GO TO THE EMERGENCY DEPARTMENT if you experience any of the following: Severe abdominal pain or nausea/vomiting Severe chest pain, or chest pain that radiates (moves) to your jaw or arm Sudden, severe shortness of breath or difficulty breathing Call urology - inability to void - problems with your catheter - worsening drainage from wound Thank you for allowing us to participate in your care. Pending Studies at Discharge: Yes (blood cultures ) Stand-Alone Forms: My [facility], Smoking Cessation Medications and DC Order Prescriptions: New amoxicillin-pot clavulanate 875-125 mg Tablet 1 tab PO BIDM Qty: 7 0RF fluconazole 200 mg tablet 200 mg PO DAILY Qty: 10 0RF Continued (DME) lancets [OneTouch Delica Plus Lancet] 30 gauge misc See Rx Instructions .Route Qty: 100 3RF Rx Instructions: test twice daily lisinopril-hydrochlorothiazide 10-12.5 mg tablet 1 tab PO QAM Qty: 90 3RF (DME) pen needle, diabetic 31 gauge x 5/16" needle See Rx Instructions .Route Qty: 100 1RF Rx Instructions: INJECT INSULIN ONCE DAILY; DX CODE- E11.9 metformin 500 mg tablet 1,000 mg PO BID Qty: 360 3RF oxycodone 5 mg tablet 2.5 mg PO BID PRN (Reason: pain) Qty: 30 0RF gabapentin 100 mg tablet 300 mg PO DAILY Qty: 90 11RF Rx Instructions: take three tablets before bedtime. (DME) Dexcom G7 Director Radiation Oncology Misc See Rx Instructions .Route Qty: 1 0RF Rx Instructions: for use with Dexcom G7 sensor (DME) Dexcom G7 Sensor Device See Rx Instructions .Route Qty: 3 11RF Rx Instructions: change every 10 days (DME) OneTouch Ultra Test Strip See Rx Instructions .Route Qty: 100 3RF Rx Instructions: test 2 x a day (DME) blood-glucose meter [OneTouch Ultra2 Meter] Misc See Rx Instructions .Route Qty: 1 0RF Rx Instructions: test 2 x a day nystatin 100,000 unit/gram cream 1 applic TOP BID PRN (Reason: "BXO" ) Qty: 30 4RF Patient Comments: 02/23- last filled 12/21 15 day supply clobetasol 0.05 % cream 1 applic topical BID PRN (Reason: Other) Patient Comments: 02/23- last filled 08/08 15 day supply Rx Instructions: apply for 1 week then as needed, pt now wants it... nystatin 100,000 unit/gram powder 0 applic topical BID Patient Comments: 02/23- last filled 01/31 15 day supply insulin glargine [Lantus Solostar U-100 Insulin] 100 unit/mL (3 mL) insulin pen 0 unit subcut QPM Patient Comments: 02/23- filled 01/22 100 day supply as 15u daily. Original:25u subcut qpm Discontinued ciprofloxacin HCl 500 mg tablet 500 mg PO BID Qty: 60 0RF Discharge Orders: Discharge Order (Routine); Ordered 02/28/25 Ordered By: Jacklyn Jones/Other Patient Handouts: Nutrition for Wound Healing, High Blood Sugar (Hyperglycemia), Hypoglycemia (Low Blood Sugar), Managing Type 2 Diabetes Admission Data Admit Date/Time: 02/23/25 18:35 Attending Provider: Aldair Rios Admit Provider: Aldair Watt Primary Care Provider: Latosha Mccallum Other Providers: Aldair Watt; Michael Simpson Other Interventions: Discharge Summary Assessment (RN) Last Done: 02/28/25 16:11 Hospital Stay Data Consultations 02/23/25 17:09 ED Decision to Admit Stat 02/23/25 20:59 Consult Urology Routine Procedures Performed Operation Date: 02/24/25 13:00 Actual Procedures p Incision and Drainage of Perineal Abscess, Penile Biopsy, Delacruz Catheter Exchange - Michael Simpson MD Diagnostic Imagining Performed Soft Tissue Ultrasound 02/23/25 14:18 US soft tissue perineum HISTORY: 69 years-old Male large abscess/cyst . Patient presents with palpable abnormality of the perineum. COMPARISON: Scrotal ultrasound 07/16/2014 TECHNIQUE: Multiple real-time sonographic images of the perineal tissues were obtained assessing grayscale appearance and color flow FINDINGS: Indeterminate mixed echogenicity structure within the perineum demonstrates central color flow measuring 6 x 2 x 4 cm. Additionally, there is scrotal wall subcutaneous edema. IMPRESSION: Indeterminate fracture/possible mass in the perineum measures up to 6 cm. Correlation with dedicated CT of the pelvis with IV contrast recommended. ACT 112: Negative or not required by law. The above report was generated using voice recognition software. It may contain grammatical, syntax or spelling errors. Electronically signed by: Albert Lizarraga M.D. 02/23/2025 3:[address] 02/23/25 15:39 Clinical history: Possible mass Technique: Axial computed tomography images were obtained of the pelvis after the administration of intravenous contrast Findings: There is a 6.1 x 4.2 cm ring-enhancing fluid collection at the junction of the perineum and scrotum, consistent with an abscess. This is contiguous with a 9.9 x 4.2 cm fluid collection in the posterior scrotal sac No fracture is identified. There is a sclerotic lesion in the right ilium adjacent to the right sacroiliac joint. There is mild bilateral hip osteoarthritis. The sacroiliac joints appear unremarkable. There is no sign of osteomyelitis The visualized musculature appears unremarkable. There is a small umbilical hernia containing fat The iliac arteries are of normal caliber. No adenopathy is noted. The visualized bowel appears unremarkable. No free intraperitoneal fluid or air is seen. There is apparent diffuse bladder wall thickening. The bladder is decompressed, containing a Delacruz catheter Impression: 1. 6.1 cm soft tissue abscess at the junction of the scrotal sac and perineum, with an adjacent 9.9 x 4.2 cm fluid collection in the posterior scrotal sac that may represent an abscess as well 2. Apparent diffuse bladder wall thickening. Possible etiologies include infectious cystitis and neurogenic bladder 3. Small umbilical hernia containing only fat 4. Sclerotic lesion in the right ilium, indeterminate in nature but likely a benign bone island ACT 112: Positive. There are findings on this exam that require communication between the performing entity and the patient following Patient Test Result Information Act ([place] ACT 112) guidelines. Electronically signed by Andres Mitchell 02-23-2025 4:59 PM Pending Results Patient Have Any Pending Studies at Discharge: Yes (blood cultures ) Discharge Instructions Given to Patient (Per Discharging Provider) Mr. Rinaldi, Zane were hospitalized after having worsening perineal pain - found to be an abscess that was taken to the OR and drained by Dr. Simpson on 02/24. Your wound cultures grew bhavna (yeast) and you have been treated with antifungals - called fluconazole. This you will continue for the next 10 days, please take the first dose tonight. Given how your wound looked on admission decison was also made to complete a short course of antibiotics - you were prescribed augmentin, the next dose is for tonight. It is going to be very important that you have proper wound care and control your blood sugars to have the best chance of this wound healing properly. You have an appointment at the wound care center Wednesday at 11:00am. Until then continue to change the Abd pad as directed, keep the area clean and dry. You were restarted on the CGM to help with better glucose monitoring. You will need to follow up with urology, catheter to remain in place until you are seen by them. They will be notified of your discharge, if you do not hear from them by Wednesday please call the number above. Per urology nor formal lifting restrictions, please listen to your body and do not over exert. Stop activity if you have pain, shortness of breath or feel dizzy. You have blood cultures pending at the time of discharge, they are negative at 48 hours but take 5 days to get final results. If they turn positive you will be notified, you can also check in with your PCP or the [facility] portal. However, given your symptoms I do not expect they will be positive. Follow-up appointments: Make an appointment with your primary care physician within one week of discharge. A copy of this summary will be sent to them. Every time you see your primary care physician, or any other doctor, bring your medication list, and a list of questions. CONTACT YOUR PRIMARY CARE PROVIDER if you experience any of the following: Shortness of breath or difficulty breathing Fevers or chills Feeling tired with normal activity or experiencing dizziness or fainting Difficulty following your treatment plan, or difficulty taking medications CALL 911 OR GO TO THE EMERGENCY DEPARTMENT if you experience any of the following: Severe abdominal pain or nausea/vomiting Severe chest pain, or chest pain that radiates (moves) to your jaw or arm Sudden, severe shortness of breath or difficulty breathing Call urology - inability to void - problems with your catheter - worsening drainage from wound Thank you for allowing us to participate in your care. Supervising Physician Co-Signing Physician Notes I did not see or examine the patient. I verified all santos points and agree with Jacklyn Parisi PA-C with the following exceptions and/or additions: None Total Time Total Time Spent Total Time Spent (In Minutes): Time spent day of discharge 40 minutes including direct patient care, medication reconciliation, documentation, review of labs and images, and coordination of care. Coding Level of Care Code 92552 INP/OBS DISCH >30 MIN Diagnoses Perineal abscess L02.215 Penile lesion N48.9 History of urethral stricture Z87.448 Candidal UTI (urinary tract infection) B37.49 Uncontrolled type 2 diabetes mellitus with hyperglycemia E11.65 Diabetes mellitus type: type 2 Morbid obesity E66.01 Primary hypertension I10 Hypertension type: primary hypertension
== END 2025-02-28 16:45 | disposition home or self-care (01) | DRG 580 ==
LOC: ED 13:23 → 3W 18:35 → SUATTDRO 18:35 → 3W 19:41